=== PATIENT | male | born 1955 | race Caucasian/White ===

== ENCOUNTER 2024-09-18 23:36 | Inpatient (IN) | payer MEDICARE, SELFPAY ==
[2024-09-18 23:40] VITALS: PULSE 103; RESP 18; TEMP 37.2; O2SAT 98; BMI 22.5
[2024-09-19] VITALS (88 sets, daily range): BP systolic 71–125; BP diastolic 45–84; PULSE 67–108; RESP 13–36; TEMP 36.4–36.8; O2SAT 74–100
--- NOTE | 2024-09-19 00:01 | ED_ITS ---
Documented by User: Nel Hernandez MD 09/19/24 04:49 HPI - Weakness 2 General: Chief complaint: Weakness Stated complaint: Weakness Time Seen by Provider: 09/18/24 23:48 History of Present Illness: Is a healthy 68-year-old man who presents emergency room with weakness. Apparently last night middle of that he woke up and had chills and sweats and became very weak. He then slept all day. Then this evening he woke up again having rigors and they report a high fever at home. He has no specific complaints. No new cough. No nausea or vomiting. No abdominal pain. Images fever, generalized weakness and rigors. No altered mental status. No focal motor deficits. Review of Systems 2 Narrative: Constitutional symptoms: Negative except as documented in HPI. Skin symptoms: Negative except as documented in HPI. Eye symptoms: Negative except as documented in HPI. ENMT symptoms: Negative except as documented in HPI. Respiratory symptoms: Negative except as documented in HPI. Cardiovascular symptoms: Negative except as documented in HPI. Gastrointestinal symptoms: Negative except as documented in HPI. Genitourinary symptoms: Negative except as documented in HPI. Musculoskeletal symptoms: Negative except as documented in HPI. Neurologic symptoms: Negative except as documented in HPI. Psychiatric symptoms: Negative except as documented in HPI. Endocrine symptoms: Negative except as documented in HPI. PFSH ED 2 PFSH: Medical History (Updated 09/19/24 @ 05:36 by Hollis Naidu MD) BPH (benign prostatic hyperplasia) Social History (Updated 09/19/24 @ 05:33 by Hollis Naidu MD) Smoking and tobacco/nicotine status: never used tobacco/nicotine Alcohol intake: current Alcohol intake frequency: few times a month Substance/Drug Use: never Physical Exam 2 Narrative: EXAM NARRATIVE: General: Alert, no acute distress. Skin: Warm, dry. Head: Normocephalic, atraumatic. Neck: Supple, trachea midline. Eye: Extraocular movements are intact. Ears, nose, mouth and throat: Dry oral mucosa Cardiovascular: Regular, Normal peripheral perfusion. Respiratory: Lungs are clear to auscultation, respirations are non-labored, breath sounds are equal, Symmetrical chest wall expansion. Gastrointestinal: Soft, Nontender, Non distended Musculoskeletal: Normal ROM, no deformity. Neurological: Alert and oriented, No focal neurological deficit observed. Psychiatric: Cooperative, appropriate mood & affect. Course 2 Vital Signs: Vital signs: Vital Signs Temperature 99 F 09/18/24 23:40 Pulse Rate 82 09/19/24 09:07 Respiratory Rate 19 H 09/19/24 06:00 Blood Pressure 120/82 09/19/24 09:07 Pulse Oximetry 94 09/19/24 09:07 Oxygen Delivery Me thod Room Air 09/19/24 00:39 MDM - Weakness Medical Decision Making Medical decision making: Differential diagnosis for patient presenting with generalized weakness including but not limited to and based on the above HPI, review of systems and physical exam: Sepsis. Dehydration. Renal failure. Electrolyte abnormalities. Anemia. Congestive heart failure. Hypotension. Coronary syndrome. Hepatitis. Cirrhosis. Infections such as pneumonia, urinary tract infection, Tick bourne illness, Cellulitis, Viral infections including influenza and Covid-19. Workup: labwork and lab/exam driven imaging ordered to evaluate, rule in and rule out above pathologies. Chest x-ray: No acute process. No infiltrate. No pneumothorax. This was reviewed and interpreted by myself the emergency room physician. I also reviewed the radiology report. Lab Review: Laboratory results were reviewed and interpreted by myself the emergency room physician. No leukocytosis. No anemia. Platelets are low at 87. BUN and creatinine are elevated at 33 and 1.6. Lactate is elevated at 2.7. LFTs are not elevated. Urinalysis is negative for infection. He does have some abdominal pain on exam. CTs have been ordered. I reviewed the patient's medical record. Consultation: Spoke with Dr. Naidu who is admitting the patient to the ICU. However he is willing to have results of CT scans he ordered done before admitting the patient to the ICU. Assessment and plan: Sepsis Septic shock Hypotension Encephalopathy Non-ST elevation myocardial infarction ?No clear sepsis source at this time. He does have some abdominal pain. Ultrasound does not show any signs of cholangitis or cholecystitis. Unofficial read. -2.5 L normal saline bolus. Fluid volumes based on ideal body weight. -Broad-spectrum antibiotics were administered. Meropenem and Zyvox. ?Initiating Levophed therapy. Blood pressures continue to worsen despite fluids. -Sepsis quality measures. -Lactic acid with a reflex was ordered. -Blood cultures were ordered. -I discussed the patient with the hospitalist on-call who is admitting the patient. - Discussed findings and plan with patient. Answered any questions. - All laboratory values were reviewed and interpreted personally by myself, the ER physician - All imaging was reviewed and interpreted personally by myself, the ER physician. - Evaluation and treatment of this problem were appropriate in the emergency setting Critical care -I spent a total of >35 minutes of critical care time managing the patient, independent of any other practitioner. -The time involved in the performance of separately reportable procedures was not counted towards critical care time. Lab Data 09/19/24 07:08 09/19/24 07:[address] 09/19/24 02:33 IMPRESSION: 1. Scattered ectopic venous gas densities again seen including punctate gas densities within the cavernous sinuses. 2. Otherwise, there are no acute intracranial findings. Abdomen Ultrasound 09/19/24 03:09 IMPRESSION: 1. There are no acute abdominal findings. 2. Mild gallbladder wall thickening without evidence for gallstones or pericholecystic fluid to suggest cholecystitis. Chest/Abdomen/Pelvis CT 09/19/24 03:10 IMPRESSION: 1. Background centrilobular emphysema. Hazy opacities portions lungs likely represents atelectasis. 2. Elongated fluid-filled paratracheal cystic mass seen on the right may represent a benign bronchogenic cyst. 3. Ectopic gas densities superimposes over the left brachiocephalic vein, right internal jugular vein, right internal thoracic vein in left pectoralis veins. The etiology is indeterminate. IMPRESSION: 1. Simple cyst in the upper pole left kidney measuring 2.6 cm. No further workup needed. 2. Simple cyst in the left hepatic lobe measuring up 1.7 cm. No further workup needed. 3. Diverticulosis of the sigmoid colon COMMENTS: Consistent with the [employer]'s Incidental Findings Committee white paper (J Am Abisai Radiol 2018): Any incidental renal lesion less than 1 cm or classified as too small to characterize, or any incidental cystic renal lesion characterized as simple-appearing, is likely benign. No follow-up imaging is recommended for these lesions per consensus recommendations based on imaging criteria. ADDENDUM: 09/19/24 0552 CRITICAL RESULT: THIS REPORT CONTAINS FINDINGS THAT MAY BE CRITICAL TO PATIENT CARE. The findings were verbally communicated via telephone conference with Dr. Mary at 5:48 AM MARRIAGE COUNSELOR MINISTER on 09/19/2024. The findings were acknowledged and understood. Lumbar Puncture Fluoroscopy 09/19/24 05:51 IMPRESSION: Uncomplicated lumbar puncture for CSF. Neck CT 09/19/24 06:35 IMPRESSION: 1. 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 2. Scattered ectopic venous gas densities as previously reported and now seen within small veins in the soft tissues of the neck and within the right cavernous sinus. Chest X-Ray 09/19/24 10:32 IMPRESSION: RIGHT PICC line in good position Laboratory Results WBC 18.90 10^3/uL (3.29-11.43) H 09/19/24 07:08 RBC 4.44 10^6/uL (3.85-5.65) 09/19/24 07:08 Hgb 13.60 g/dL (11.27-16.99) 09/19/24 07:08 Hct 42.3 % (37-53) 09/19/24 07:08 MCV 95.3 fl (82-101) D 09/19/24 07:08 MCH 30.6 pg (27-33) 09/19/24 07:08 MCHC 32.2 g/dL (30-55) 09/19/24 07:08 RDW 12.8 % (12.1-15.1) 09/19/24 07:08 Plt Count 85 10^3/cmm (157-399) L 09/19/24 07:08 MPV 11.5 fL (7.4-10.4) H 09/19/24 07:08 Neut % (Auto) 91.2 % 09/19/24 07:08 Lymph % (Auto) 2.1 % 09/19/24 07:08 [place] % (Auto) 3.8 % 09/19/24 07:08 Eos % (Auto) 0.1 % 09/19/24 07:08 Baso % (Auto) 0.5 % 09/19/24 07:08 Neut # (Auto) 17.24 10^3/uL (1.8-7.7) H 09/19/24 07:08 Lymph # (Auto) 0.4 10^3/uL (0.8-4.8) L 09/19/24 07:08 [place] # (Auto) 0.7 10^3/uL (0.2-0.9) 09/19/24 07:08 Eos # (Auto) 0.0 10^3/uL (0.0-0.8) 09/19/24 07:08 Baso # (Auto) 0.1 10^3/uL (0.0-0.1) 09/19/24 07:08 Nucleated RBC % (auto) 0 % 09/19/24 07:08 Total Counted 100 (0-100) 09/19/24 01:20 Atypical Lymphs % 8.0 % (0-5) H 09/19/24 01:20 Absolute Neutrophils 6.3 10^3/cmm (1.4-6.5) 09/19/24 01:20 Segmented Neutrophils 62 % 09/19/24 01:20 Band Neutrophils 21.0 % 09/19/24 01:20 Absolute Lymphocytes 0.8 10^3/cmm (1.2-3.4) L 09/19/24 01:20 Lymphocytes (Manual) 2 % 09/19/24 01:20 Monocytes (Manual) 5.0 % 09/19/24 01:20 Absolute Monocytes 0.4 10^3/cmm (0.1-0.6) 09/19/24 01:20 Eosinophils (Manual) 0 % 09/19/24 01:20 Absolute Eosinophils 0.0 10^3/cmm (0.0-0.7) 09/19/24 01:20 Basophils (Manual) 0.0 % 09/19/24 01:20 Absolute Basophils 0.0 10^3/cmm (0.0-0.2) 09/19/24 01:20 Myelocytes 2.0 % 09/19/24 01:20 Nucleated RBCs # 0.0 /100WBC 09/19/24 07:08 Toxic Vacuolation 2+ H 09/19/24 01:20 Platelet Estimate Decreased (Normal) 09/19/24 01:20 PT 18.10 SECONDS (12.1-14.9) H 09/19/24 01:20 INR 1.45 (0.8-1.2) H 09/19/24 01:20 Sodium 134 mmol/L (136-145) L 09/19/24 07:08 Potassium 3.0 mmol/L (3.5-5.1) L 09/19/24 07:08 Chloride 104 mmol/L (98-107) 09/19/24 07:08 Carbon Dioxide 19 mmol/L (22-29) L 09/19/24 07:08 Anion Gap 14.0 (5-19) 09/19/24 07:08 BUN 35 mg/dL (8-23) H 09/19/24 07:08 Creatinine 1.6 mg/dL (0.7-1.2) H 09/19/24 07:08 GFR Calculation 43.5 mL/min (90-130) L 09/19/24 07:08 Glucose 124 mg/dL (65-115) H 09/19/24 07:08 Estimat Average Glucose 114 09/19/24 01:20 Hemoglobin A1c 5.6 % (4.0-6.0) 09/19/24 01:20 Calculated Osmolality 287 mOsm/kg (285-295) 09/19/24 07:08 Lactic Acid 2.5 mmol/L (0.5-2.2) H 09/19/24 01:20 Lactic Acid (Sepsis) 2.8 mmol/L (0.5-2.2) H 09/19/24 04:01 Calcium 8.1 mg/dL (8.5-10.5) L 09/19/24 07:08 Iron 9 ug/dL (59-158) L 09/19/24 07:08 TIBC 145 mcg/dl 09/19/24 07:08 % Saturation 6.2 % (20-50) L 09/19/24 07:08 Unsat Iron Binding 136 ug/dL (112-347) 09/19/24 07:08 Total Bilirubin 1.3 mg/dL (0.15-1.2) H 09/19/24 07:08 GGT 59 U/L (8-61) 09/19/24 07:08 AST 154 U/L (0-40) H 09/19/24 07:08 ALT 120 U/L (0-41) H 09/19/24 07:08 Alkaline Phosphatase 77 U/L (40-130) 09/19/24 07:08 Ammonia 27 umol/L (16-60) 09/19/24 04:01 Lactate Dehydrogenase 301 U/L (135-225) H 09/19/24 07:08 Creatine Kinase 473 U/L (39-308) H* 09/19/24 07:08 Troponin T Baseline 179 ng/L (0-15) H* 09/19/24 01:20 Troponin T 120 Minute 189.8 ng/L (0-15) H 09/19/24 02:34 Delta Troponin T 10.8 ABS# (0-10) H* 09/19/24 02:34 Troponin T Hi Sens 6Hr 146.7 ng/L (0-15) H 09/19/24 07:08 Troponin T Hi Sens 6Hr Delta -32.3 ng/L (0-12) L 09/19/24 07:08 C-Reactive Protein 126.1 mg/L (0.0-4.9) H 09/19/24 01:20 C-Reactive Protein 127.5 mg/L (0.0-4.9) H 09/19/24 01:20 Total Protein 5.5 g/dL (6.6-8.7) L 09/19/24 07:08 Albumin 3.1 g/dL (3.5-5.2) L 09/19/24 07:08 Globulin 2.4 g/dL (1.3-4.6) 09/19/24 07:08 Triglycerides 49 mg/dL (0-150) 09/19/24 07:08 Cholesterol 90 mg/dL (0-200) 09/19/24 07:08 LDL Cholesterol, Calc 18 mg/dL (50-129) L 09/19/24 07:08 HDL Cholesterol 62 mg/dL (60-100) 09/19/24 07:08 LDL/HDL Ratio 0.29 RATIO (0.00-3.22) 09/19/24 07:08 Cholesterol/HDL Ratio 1.45 mg/dL (1.0-5.00) 09/19/24 07:08 Lipase 28 U/L (13-60) 09/19/24 01:20 Vitamin B12 745 pg/mL (232-1245) 09/19/24 07:08 Procalcitonin 98.44 ng/mL (0-0.5) H 09/19/24 01:20 TSH 1.64 uIU/mL (0.27-4.20) 09/19/24 01:20 Urine Color Dark yellow (Yellow) A 09/19/24 03:15 Urine Appearance Cloudy (CLEAR) A 09/19/24 03:15 Urine pH 5.5 (5-7) 09/19/24 03:15 Ur Specific [place] 1.023 (1.005-1.030) 09/19/24 03:15 Urine Protein 1+ (Negative) A 09/19/24 03:15 Urine Glucose (UA) Negative (Normal) 09/19/24 03:15 Urine Ketones Trace (Negative) 09/19/24 03:15 Urine Blood Negative (Negative) 09/19/24 03:15 Urine Nitrate Negative (Negative) 09/19/24 03:15 Urine Bilirubin 1+ (Negative) H 09/19/24 03:15 Urine Urobilinogen 1.0 mg/dL (Negative) 09/19/24 03:15 Ur Leukocyte Esterase Negative (Negative) 09/19/24 03:15 Urine RBC 0-2 /hpf (0-2) 09/19/24 03:15 Urine WBC 0-5 /hpf (0-5) 09/19/24 03:15 Ur Squamous Epith Cells 0-5 /hpf (0-5) 09/19/24 03:15 Amorphous Sediment 1+ /hpf 09/19/24 03:15 Urine Bacteria Trace /hpf (NONE) 09/19/24 03:15 Hyaline Casts 4.11 /lpf 09/19/24 03:15 Urine Mucus 2+ /hpf 09/19/24 03:15 Urine Opiates Screen Positive ng/mL (Negative) H 09/19/24 03:15 Ur Barbiturates Screen Negative ng/mL (Negative) 09/19/24 03:15 Ur Phencyclidine Scrn Negative ng/mL (Negative) 09/19/24 03:15 Ur Amphetamines Screen Negative ng/mL (Negative) 09/19/24 03:15 U Benzodiazepines Scrn Negative ng/mL (Negative) 09/19/24 03:15 Urine Cocaine Screen Negative ng/mL (Negative) 09/19/24 03:15 U Marijuana (THC) Screen Negative ng/mL (Negative) 09/19/24 03:15 Ethyl Alcohol < 10 mg/dL (0-10) 09/19/24 07:08 Coronavirus (PCR) Negative (Negative) 09/19/24 04:01 Hepatitis A IgM Ab Non-reactive (Nonreactive) 09/19/24 01:20 Hep Bs Antigen Non-reactive (Nonreactive) 09/19/24 01:20 Hep B Core IgM Ab Non-reactive (Nonreactive) 09/19/24 01:20 Hepatitis C Antibody Non-reactive (Nonreactive) 09/19/24 01:20 HIV 1&2 Ab & HIV 1 Ag Non-reactive (Non-Reactiv) 09/19/24 01:20 HIV 1&2 Antibody Non-reactive (Non-Reactiv) 09/19/24 01:20 Influenza A (PCR) Negative (Negative) 09/19/24 04:01 Influenza Type B (PCR) Negative (Negative) 09/19/24 04:01 RSV (PCR) Negative (Negative) 09/19/24 04:01 Discharge Plan Discharge Patient Disposition: Admitted As Inpatient Admit Provider: Hollis Naidu Clinical Impression: Sepsis, Septic shock, Hypotension, Renal failure, Acute metabolic encephalopathy Condition: Stable Sign Out Sign Out Data: Patient Sign Out occurred on 09/19/24 at 05:53. Patient's care was discussed, and care was transferred from Nel Hernandez MD to Leobardo Mary DO. 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 Related Data Home Medications Medication Instructions Recorded Confirmed No Known Home Medications 09/19/24 09/19/24 Allergies Allergy/AdvReac Type Severity Reaction Status Date / Time Sulfa (Sulfonamide Allergy Mild ALGY-Rash Verified 09/19/24 03:06 Antibiotics) Documented by User: Leobardo Mary DO 09/19/24 12:31 HPI - Weakness 2 General: Chief complaint: Weakness Stated complaint: Weakness Time Seen by Provider: 09/18/24 23:48 PFSH ED 2 PFSH: Medical History (Updated 09/19/24 @ 05:36 by Hollis Naidu MD) BPH (benign prostatic hyperplasia) Social History (Updated 09/19/24 @ 05:33 by Hollis Naidu MD) Smoking and tobacco/nicotine status: never used tobacco/nicotine Alcohol intake: current Alcohol intake frequency: few times a month Substance/Drug Use: never Course 2 Vital Signs: Vital signs: Vital Signs Temperature 99 F 09/18/24 23:40 Pulse Rate 82 09/19/24 09:07 Respiratory Rate 19 H 09/19/24 06:00 Blood Pressure 120/82 09/19/24 09:07 Pulse Oximetry 94 09/19/24 09:07 Oxygen Delivery Me thod Room Air 09/19/24 00:39 MDM - Weakness Medical Decision Making Medical decision making: Differential diagnosis for patient presenting with generalized weakness including but not limited to and based on the above HPI, review of systems and physical exam: Sepsis. Dehydration. Renal failure. Electrolyte abnormalities. Anemia. Congestive heart failure. Hypotension. Coronary syndrome. Hepatitis. Cirrhosis. Infections such as pneumonia, urinary tract infection, Tick bourne illness, Cellulitis, Viral infections including influenza and Covid-19. Workup: labwork and lab/exam driven imaging ordered to evaluate, rule in and rule out above pathologies. Chest x-ray: No acute process. No infiltrate. No pneumothorax. This was reviewed and interpreted by myself the emergency room physician. I also reviewed the radiology report. Lab Review: Laboratory results were reviewed and interpreted by myself the emergency room physician. No leukocytosis. No anemia. Platelets are low at 87. BUN and creatinine are elevated at 33 and 1.6. Lactate is elevated at 2.7. LFTs are not elevated. Urinalysis is negative for infection. He does have some abdominal pain on exam. CTs have been ordered. I reviewed the patient's medical record. Consultation: Spoke with Dr. Naidu who is admitting the patient to the ICU. However he is willing to have results of CT scans he ordered done before admitting the patient to the ICU. Assessment and plan: Sepsis Septic shock Hypotension Encephalopathy Non-ST elevation myocardial infarction ?No clear sepsis source at this time. He does have some abdominal pain. Ultrasound does not show any signs of cholangitis or cholecystitis. Unofficial read. -2.5 L normal saline bolus. Fluid volumes based on ideal body weight. -Broad-spectrum antibiotics were administered. Meropenem and Zyvox. ?Initiating Levophed therapy. Blood pressures continue to worsen despite fluids. -Sepsis quality measures. -Lactic acid with a reflex was ordered. -Blood cultures were ordered. -I discussed the patient with the hospitalist on-call who is admitting the patient. - Discussed findings and plan with patient. Answered any questions. - All laboratory values were reviewed and interpreted personally by myself, the ER physician - All imaging was reviewed and interpreted personally by myself, the ER physician. - Evaluation and treatment of this problem were appropriate in the emergency setting Critical care -I spent a total of >35 minutes of critical care time managing the patient, independent of any other practitioner. -The time involved in the performance of separately reportable procedures was not counted towards critical care time. Care assumed at change of shift Dr. Hernandez had already talked to hospitalist service here waiting on the CT of the abdomen pelvis no acute pathology however interestingly there reported some air within a few of the vessels. Patient has not had any central lines placed. Reviewed the IVs with nursing staff they are functioning appropriately no abnormalities. Discussed with Dr. Terrell will admit as planned. Discussion previously with Dr. Hernandez. No other interventions done at this time. Lab Data 09/19/24 07:08 09/19/24 07:[address] 09/19/24 02:33 IMPRESSION: 1. Scattered ectopic venous gas densities again seen including punctate gas densities within the cavernous sinuses. 2. Otherwise, there are no acute intracranial findings. Abdomen Ultrasound 09/19/24 03:09 IMPRESSION: 1. There are no acute abdominal findings. 2. Mild gallbladder wall thickening without evidence for gallstones or pericholecystic fluid to suggest cholecystitis. Chest/Abdomen/Pelvis CT 09/19/24 03:10 IMPRESSION: 1. Background centrilobular emphysema. Hazy opacities portions lungs likely represents atelectasis. 2. Elongated fluid-filled paratracheal cystic mass seen on the right may represent a benign bronchogenic cyst. 3. Ectopic gas densities superimposes over the left brachiocephalic vein, right internal jugular vein, right internal thoracic vein in left pectoralis veins. The etiology is indeterminate. IMPRESSION: 1. Simple cyst in the upper pole left kidney measuring 2.6 cm. No further workup needed. 2. Simple cyst in the left hepatic lobe measuring up 1.7 cm. No further workup needed. 3. Diverticulosis of the sigmoid colon COMMENTS: Consistent with the [place] [employer]'s Incidental Findings Committee white paper (J [employer]ai Radiol 2018): Any incidental renal lesion less than 1 cm or classified as too small to characterize, or any incidental cystic renal lesion characterized as simple-appearing, is likely benign. No follow-up imaging is recommended for these lesions per consensus recommendations based on imaging criteria. ADDENDUM: 09/19/24 0552 CRITICAL RESULT: THIS REPORT CONTAINS FINDINGS THAT MAY BE CRITICAL TO PATIENT CARE. The findings were verbally communicated via telephone conference with Dr. Mary at 5:48 AM MARRIAGE COUNSELOR MINISTER on 09/19/2024. The findings were acknowledged and understood. Lumbar Puncture Fluoroscopy 09/19/24 05:51 IMPRESSION: Uncomplicated lumbar puncture for CSF. Neck CT 09/19/24 06:35 IMPRESSION: 1. 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 2. Scattered ectopic venous gas densities as previously reported and now seen within small veins in the soft tissues of the neck and within the right cavernous sinus. Chest X-Ray 09/19/24 10:32 IMPRESSION: RIGHT PICC line in good position Laboratory Results WBC 18.90 10^3/uL (3.29-11.43) H 09/19/24 07:08 RBC 4.44 10^6/uL (3.85-5.65) 09/19/24 07:08 Hgb 13.60 g/dL (11.27-16.99) 09/19/24 07:08 Hct 42.3 % (37-53) 09/19/24 07:08 MCV 95.3 fl (82-101) D 09/19/24 07:08 MCH 30.6 pg (27-33) 09/19/24 07:08 MCHC 32.2 g/dL (30-55) 09/19/24 07:08 RDW 12.8 % (12.1-15.1) 09/19/24 07:08 Plt Count 85 10^3/cmm (157-399) L 09/19/24 07:08 MPV 11.5 fL (7.4-10.4) H 09/19/24 07:08 Neut % (Auto) 91.2 % 09/19/24 07:08 Lymph % (Auto) 2.1 % 09/19/24 07:08 [place] % (Auto) 3.8 % 09/19/24 07:08 Eos % (Auto) 0.1 % 09/19/24 07:08 Baso % (Auto) 0.5 % 09/19/24 07:08 Neut # (Auto) 17.24 10^3/uL (1.8-7.7) H 09/19/24 07:08 Lymph # (Auto) 0.4 10^3/uL (0.8-4.8) L 09/19/24 07:08 [place] # (Auto) 0.7 10^3/uL (0.2-0.9) 09/19/24 07:08 Eos # (Auto) 0.0 10^3/uL (0.0-0.8) 09/19/24 07:08 Baso # (Auto) 0.1 10^3/uL (0.0-0.1) 09/19/24 07:08 Nucleated RBC % (auto) 0 % 09/19/24 07:08 Total Counted 100 (0-100) 09/19/24 01:20 Atypical Lymphs % 8.0 % (0-5) H 09/19/24 01:20 Absolute Neutrophils 6.3 10^3/cmm (1.4-6.5) 09/19/24 01:20 Segmented Neutrophils 62 % 09/19/24 01:20 Band Neutrophils 21.0 % 09/19/24 01:20 Absolute Lymphocytes 0.8 10^3/cmm (1.2-3.4) L 09/19/24 01:20 Lymphocytes (Manual) 2 % 09/19/24 01:20 Monocytes (Manual) 5.0 % 09/19/24 01:20 Absolute Monocytes 0.4 10^3/cmm (0.1-0.6) 09/19/24 01:20 Eosinophils (Manual) 0 % 09/19/24 01:20 Absolute Eosinophils 0.0 10^3/cmm (0.0-0.7) 09/19/24 01:20 Basophils (Manual) 0.0 % 09/19/24 01:20 Absolute Basophils 0.0 10^3/cmm (0.0-0.2) 09/19/24 01:20 Myelocytes 2.0 % 09/19/24 01:20 Nucleated RBCs # 0.0 /100WBC 09/19/24 07:08 Toxic Vacuolation 2+ H 09/19/24 01:20 Platelet Estimate Decreased (Normal) 09/19/24 01:20 PT 18.10 SECONDS (12.1-14.9) H 09/19/24 01:20 INR 1.45 (0.8-1.2) H 09/19/24 01:20 Sodium 134 mmol/L (136-145) L 09/19/24 07:08 Potassium 3.0 mmol/L (3.5-5.1) L 09/19/24 07:08 Chloride 104 mmol/L (98-107) 09/19/24 07:08 Carbon Dioxide 19 mmol/L (22-29) L 09/19/24 07:08 Anion Gap 14.0 (5-19) 09/19/24 07:08 BUN 35 mg/dL (8-23) H 09/19/24 07:08 Creatinine 1.6 mg/dL (0.7-1.2) H 09/19/24 07:08 GFR Calculation 43.5 mL/min (90-130) L 09/19/24 07:08 Glucose 124 mg/dL (65-115) H 09/19/24 07:08 Estimat Average Glucose 114 09/19/24 01:20 Hemoglobin A1c 5.6 % (4.0-6.0) 09/19/24 01:20 Calculated Osmolality 287 mOsm/kg (285-295) 09/19/24 07:08 Lactic Acid 2.5 mmol/L (0.5-2.2) H 09/19/24 01:20 Lactic Acid (Sepsis) 2.8 mmol/L (0.5-2.2) H 09/19/24 04:01 Calcium 8.1 mg/dL (8.5-10.5) L 09/19/24 07:08 Iron 9 ug/dL (59-158) L 09/19/24 07:08 TIBC 145 mcg/dl 09/19/24 07:08 % Saturation 6.2 % (20-50) L 09/19/24 07:08 Unsat Iron Binding 136 ug/dL (112-347) 09/19/24 07:08 Total Bilirubin 1.3 mg/dL (0.15-1.2) H 09/19/24 07:08 GGT 59 U/L (8-61) 09/19/24 07:08 AST 154 U/L (0-40) H 09/19/24 07:08 ALT 120 U/L (0-41) H 09/19/24 07:08 Alkaline Phosphatase 77 U/L (40-130) 09/19/24 07:08 Ammonia 27 umol/L (16-60) 09/19/24 04:01 Lactate Dehydrogenase 301 U/L (135-225) H 09/19/24 07:08 Creatine Kinase 473 U/L (39-308) H* 09/19/24 07:08 Troponin T Baseline 179 ng/L (0-15) H* 09/19/24 01:20 Troponin T 120 Minute 189.8 ng/L (0-15) H 09/19/24 02:34 Delta Troponin T 10.8 ABS# (0-10) H* 09/19/24 02:34 Troponin T Hi Sens 6Hr 146.7 ng/L (0-15) H 09/19/24 07:08 Troponin T Hi Sens 6Hr Delta -32.3 ng/L (0-12) L 09/19/24 07:08 C-Reactive Protein 126.1 mg/L (0.0-4.9) H 09/19/24 01:20 C-Reactive Protein 127.5 mg/L (0.0-4.9) H 09/19/24 01:20 Total Protein 5.5 g/dL (6.6-8.7) L 09/19/24 07:08 Albumin 3.1 g/dL (3.5-5.2) L 09/19/24 07:08 Globulin 2.4 g/dL (1.3-4.6) 09/19/24 07:08 Triglycerides 49 mg/dL (0-150) 09/19/24 07:08 Cholesterol 90 mg/dL (0-200) 09/19/24 07:08 LDL Cholesterol, Calc 18 mg/dL (50-129) L 09/19/24 07:08 HDL Cholesterol 62 mg/dL (60-100) 09/19/24 07:08 LDL/HDL Ratio 0.29 RATIO (0.00-3.22) 09/19/24 07:08 Cholesterol/HDL Ratio 1.45 mg/dL (1.0-5.00) 09/19/24 07:08 Lipase 28 U/L (13-60) 09/19/24 01:20 Vitamin B12 745 pg/mL (232-1245) 09/19/24 07:08 Procalcitonin 98.44 ng/mL (0-0.5) H 09/19/24 01:20 TSH 1.64 uIU/mL (0.27-4.20) 09/19/24 01:20 Urine Color Dark yellow (Yellow) A 09/19/24 03:15 Urine Appearance Cloudy (CLEAR) A 09/19/24 03:15 Urine pH 5.5 (5-7) 09/19/24 03:15 Ur Specific [place] 1.023 (1.005-1.030) 09/19/24 03:15 Urine Protein 1+ (Negative) A 09/19/24 03:15 Urine Glucose (UA) Negative (Normal) 09/19/24 03:15 Urine Ketones Trace (Negative) 09/19/24 03:15 Urine Blood Negative (Negative) 09/19/24 03:15 Urine Nitrate Negative (Negative) 09/19/24 03:15 Urine Bilirubin 1+ (Negative) H 09/19/24 03:15 Urine Urobilinogen 1.0 mg/dL (Negative) 09/19/24 03:15 Ur Leukocyte Esterase Negative (Negative) 09/19/24 03:15 Urine RBC 0-2 /hpf (0-2) 09/19/24 03:15 Urine WBC 0-5 /hpf (0-5) 09/19/24 03:15 Ur Squamous Epith Cells 0-5 /hpf (0-5) 09/19/24 03:15 Amorphous Sediment 1+ /hpf 09/19/24 03:15 Urine Bacteria Trace /hpf (NONE) 09/19/24 03:15 Hyaline Casts 4.11 /lpf 09/19/24 03:15 Urine Mucus 2+ /hpf 09/19/24 03:15 Urine Opiates Screen Positive ng/mL (Negative) H 09/19/24 03:15 Ur Barbiturates Screen Negative ng/mL (Negative) 09/19/24 03:15 Ur Phencyclidine Scrn Negative ng/mL (Negative) 09/19/24 03:15 Ur Amphetamines Screen Negative ng/mL (Negative) 09/19/24 03:15 U Benzodiazepines Scrn Negative ng/mL (Negative) 09/19/24 03:15 Urine Cocaine Screen Negative ng/mL (Negative) 09/19/24 03:15 U Marijuana (THC) Screen Negative ng/mL (Negative) 09/19/24 03:15 Ethyl Alcohol < 10 mg/dL (0-10) 09/19/24 07:08 Coronavirus (PCR) Negative (Negative) 09/19/24 04:01 Hepatitis A IgM Ab Non-reactive (Nonreactive) 09/19/24 01:20 Hep Bs Antigen Non-reactive (Nonreactive) 09/19/24 01:20 Hep B Core IgM Ab Non-reactive (Nonreactive) 09/19/24 01:20 Hepatitis C Antibody Non-reactive (Nonreactive) 09/19/24 01:20 HIV 1&2 Ab & HIV 1 Ag Non-reactive (Non-Reactiv) 09/19/24 01:20 HIV 1&2 Antibody Non-reactive (Non-Reactiv) 09/19/24 01:20 Influenza A (PCR) Negative (Negative) 09/19/24 04:01 Influenza Type B (PCR) Negative (Negative) 09/19/24 04:01 RSV (PCR) Negative (Negative) 09/19/24 04:01 All radiology interpretation(s) finalized by discharge Discharge Plan Discharge Patient Disposition: Admitted As Inpatient Admit Provider: Hollis Naidu Clinical Impression: Sepsis, Septic shock, Hypotension, Renal failure, Acute metabolic encephalopathy Condition: Stable Sign Out Sign Out Data: Patient Sign Out occurred on 09/19/24 at 05:53. Patient's care was discussed, and care was transferred from Nel Hernandez MD to Leobardo Mary DO. 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
--- NOTE | 2024-09-19 00:13 | XRR_ITS ---
PROCEDURE INFORMATION: Exam: XR Chest Exam date and time: 09/19/2024 12:29 AM Age: 68 years old Clinical indication: Other: Weakness TECHNIQUE: Imaging protocol: Radiologic exam of the chest. Views: 1 view. COMPARISON: No relevant prior studies available. FINDINGS: Lungs: Unremarkable. No consolidation. Pleural spaces: Unremarkable. No pleural effusion. No pneumothorax. Heart/Mediastinum: Unremarkable. No cardiomegaly. Bones/joints: There is evidence of a healed fracture of the right clavicle. XR/XR chest 1V portable [id number] IMPRESSION: There are no acute chest findings.
[2024-09-19] MEDS: sodium chloride 0.9% 1,000 ML 999 ML IV ×2 (01:14→01:30)
[2024-09-19 01:29] LABS: Covid PCR NEGATIVE (Negative); Influenza A NEGATIVE (Negative); Influenza B NEGATIVE (Negative); Respiratory Syncytial Virus Ce NEGATIVE (Negative)
[2024-09-19 01:32] LABS: Hematocrit 42.6 % (37-53); Mean Corpuscular HGB Conc 33.6 g/dL (30-55); Mean Corpuscular Hemoglobin 30.4 pg (27-33); Mean Corpuscular Volume 90.6 fl (82-101); Platelet Count 87 10^3/cmm (157-399); Red Cell Distribution Width 12.5 % (12.1-15.1); White Blood Count 7.65 10^3/uL (3.29-11.43)
[2024-09-19 01:55] LABS: Alanine Aminotransferase 80 U/L (0-41); Albumin Level 3.7 g/dL (3.5-5.2); Alkaline Phosphatase 135 U/L (40-130); Anion Gap 16.2 (5-19); Aspartate Amino Transferase 115 U/L (0-40); Blood Urea Nitrogen 33 mg/dL (8-23); C Reactive Protein 127.5 mg/L (0.0-4.9); Calcium 8.6 mg/dL (8.5-10.5); Carbon Dioxide 24 mmol/L (22-29); Chloride 102 mmol/L (98-107); Creatinine Clr Calc Pharmacy 46.4335; Globulin 1.7 g/dL (1.3-4.6); Glomerular Filtration Rate 43.5 mL/min (90-130); Glucose 115 mg/dL (65-115); Osmolality Calculated 296 mOsm/kg (285-295); Potassium 3.2 mmol/L (3.5-5.1); Sodium 139 mmol/L (136-145); Total Bilirubin 0.7 mg/dL (0.15-1.2); Total Protein 5.4 g/dL (6.6-8.7)
[2024-09-19 01:56] LABS: Lactic Sepsis W/Reflex 2.5 mmol/L (0.5-2.2)
[2024-09-19 01:57] LABS: Troponin(5th) Baseline 179 ng/L (0-15)
[2024-09-19 02:10] LABS: Slide Review Slide Review Perform
[2024-09-19 02:11] LABS: Absolute Neutrophil 6.3 10^3/cmm (1.4-6.5); Absolute Segmented Neutrophil 4.7 10/cmm (1.6-7.1); Band Neutrophils Absolute 1.6 10^3/cmm (0.0-1.2); Eosinophils 0 %; Lymphocytes 2 %; Lymphocytes Absolute 0.8 10^3/cmm (1.2-3.4); Monocytes Absolute 0.4 10^3/cmm (0.1-0.6); Platelet Estimate Decreased (Normal); Segmented Neutrophils 62 %; Total Cells Counted 100 (0-100)
[2024-09-19 02:12] LABS: Toxic Vacuolation 2+
[2024-09-19] MEDS: sodium chloride 0.9% 500 ML 999 ML IV (02:30)
--- NOTE | 2024-09-19 02:33 | CTR_ITS ---
PROCEDURE INFORMATION: Exam: CT Head Without Contrast Exam date and time: 09/19/2024 4:45 AM Age: 68 years old Clinical indication: Injury or trauma; Fall; Blunt trauma (contusions or hematomas); Consciousness not specified; Altered mental status/memory loss and dizziness; Additional info: Fall, head injury TECHNIQUE: Imaging protocol: Computed tomography of the head without contrast. Radiation optimization: All CT scans at this facility use at least one of these dose optimization techniques: automated exposure control; mA and/or kV adjustment per patient size (includes targeted exams where dose is matched to clinical indication); or iterative reconstruction. COMPARISON: No relevant prior studies available. RADIATION DOSE METRICS: Total DLP (mGy-cm): 1187.23 FINDINGS: Brain: Normal. No hemorrhage. Unremarkable white matter. No mass effect. Cerebral ventricles: No ventriculomegaly. Paranasal sinuses: Mucosal thickening and fluid is seen within the ethmoidal and maxillary sinuses. Mastoid air cells: Visualized mastoid air cells are well aerated. Bones: Unremarkable. No acute fracture. Soft tissues: Unremarkable. Vasculature: Scattered ectopic venous gas densities are again seen. CT/CT head wo con* [id number] IMPRESSION: 1. Scattered ectopic venous gas densities again seen including punctate gas densities within the cavernous sinuses. 2. Otherwise, there are no acute intracranial findings.
[2024-09-19 03:00] LABS: Troponin 5 2HR 189.8 ng/L (0-15); Troponin 5 2HR Delta 10.8 ABS# (0-10)
[2024-09-19] MEDS: norepinephrine 4 MG/250 ML BAG 30 MG IV ×2 (03:04→09:46)
[2024-09-19] MEDS: meropenem 500 mg SDV IVP (03:08)
[2024-09-19] MEDS: linezolid premix 600 MG/300 ML PREMIX 300 MG IV (03:09)
--- NOTE | 2024-09-19 03:09 | USR_ITS ---
PROCEDURE INFORMATION: Exam: US Abdomen, Limited; Right Upper Quadrant Exam date and time: 09/19/2024 3:31 AM Age: 68 years old Clinical indication: Vomiting and other: Normal tbili = 0.7, elevated ast = 115, elevated alt = 80, elevated alkphos = 135; Additional info: Ruq, liver, gallbladder, ducts TECHNIQUE: Imaging protocol: Real time ultrasound of the abdomen with image documentation. Limited exam focused on the right upper quadrant. COMPARISON: No relevant prior studies available. FINDINGS: Liver: Normal. No masses. Gallbladder: There is mild gallbladder thickening measuring 3 mm. However, there is no evidence for gallstones pericholecystic fluid. Biliary ducts: Normal. No stones. No dilation. Pancreas: Visualized pancreas is unremarkable. Right kidney: Normal. No mass. No hydronephrosis. US/US abdomen limited [id number] IMPRESSION: 1. There are no acute abdominal findings. 2. Mild gallbladder wall thickening without evidence for gallstones or pericholecystic fluid to suggest cholecystitis.
--- NOTE | 2024-09-19 03:10 | CTR_ITS ---
PROCEDURE INFORMATION: Exam: CT Chest Without Contrast; Diagnostic Exam date and time: 09/19/2024 4:51 AM Age: 68 years old Clinical indication: Abdominal tenderness and fever; Dyspnea and shortness of breath; Additional info: SOB TECHNIQUE: Imaging protocol: Diagnostic computed tomography of the chest without contrast. Radiation optimization: All CT scans at this facility use at least one of these dose optimization techniques: automated exposure control; mA and/or kV adjustment per patient size (includes targeted exams where dose is matched to clinical indication); or iterative reconstruction. COMPARISON: CR (CHEST, ) 09/19/2024 12:29 AM RADIATION DOSE METRICS: Total DLP (mGy-cm): 0 FINDINGS: Lungs: There is a background of mild centrilobular emphysema. Hazy opacities are seen in the dependent portions of the lungs likely representing atelectasis. Pleural spaces: Unremarkable. No pneumothorax. No pleural effusion. Heart: Unremarkable. No cardiomegaly. No pericardial effusion. Coronary arteries: There are no coronary artery calcifications. Mediastinal space: There is elongated paratracheal cystic mass seen on the right measures 2.4 cm AP dimension 2 cm transverse dimension and 6.1 cm craniocaudal dimension. This may represent a large benign bronchogenic cyst. Lymph nodes: Unremarkable. No enlarged lymph nodes. Vasculature: Unremarkable. No aortic aneurysm. Bones/joints: Unremarkable. No acute fracture. Soft tissues: Unremarkable. Other findings: There is a gas density that superimposes over the left brachiocephalic vein. A tiny right internal jugular right internal thoracic vein. Third tiny gas density is seen in the left pectoralis vein. COMMENTS: The presence of pulmonary emphysema on CT is an independent risk factor for lung cancer. In the absence of a history or active diagnosis of lung cancer, it is recommended that this patient with emphysema be evaluated for enrollment in a low dose CT lung cancer screening program. PROCEDURE INFORMATION: Exam: CT Abdomen And Pelvis Without Contrast Exam date and time: 09/19/2024 4:51 AM Age: 68 years old Clinical indication: Abdominal tenderness and fever; Dyspnea and shortness of breath; Additional info: SOB TECHNIQUE: Imaging protocol: Computed tomography of the abdomen and pelvis without contrast. Radiation optimization: All CT scans at this facility use at least one of these dose optimization techniques: automated exposure control; mA and/or kV adjustment per patient size (includes targeted exams where dose is matched to clinical indication); or iterative reconstruction. COMPARISON: US abdomen limited [id number] 09/19/2024 3:31 AM RADIATION DOSE METRICS: Total DLP (mGy-cm): 732.73 FINDINGS: Liver: There is hypoattenuation the cystic lesion seen within the left hepatic lobe superiorly measuring 1.7 cm its greatest. This likely represents a benign cyst. Gallbladder and biliary ducts: Normal. No calcified stones. No ductal dilation. Pancreas: Normal. No ductal dilation. Spleen: Normal. No splenomegaly. Adrenal glands: Normal. No mass. Kidneys and ureters: There is a hypoattenuation cystic mass seen in the upper pole of the left kidney measuring 2.6 cm compatible with a simple cyst. Stomach and bowel: Diverticula present along the sigmoid colon. There are no inflammatory changes seen to suggest diverticulitis. Appendix: No evidence of appendicitis. Intraperitoneal space: Unremarkable. No free air. No significant fluid collection. Vasculature: Unremarkable. No abdominal aortic aneurysm. Lymph nodes: Unremarkable. No enlarged lymph nodes. Urinary bladder: Unremarkable as visualized. Reproductive: Unremarkable as visualized. Bones/joints: Unremarkable. No acute fracture. Soft tissues: Strandy opacities are seen in the perinephric fascia bilaterally representing chronic scarring. CT/[place] [id number] IMPRESSION: 1. Background centrilobular emphysema. Hazy opacities portions lungs likely represents atelectasis. 2. Elongated fluid-filled paratracheal cystic mass seen on the right may represent a benign bronchogenic cyst. 3. Ectopic gas densities superimposes over the left brachiocephalic vein, right internal jugular vein, right internal thoracic vein in left pectoralis veins. The etiology is indeterminate. IMPRESSION: 1. Simple cyst in the upper pole left kidney measuring 2.6 cm. No further workup needed. 2. Simple cyst in the left hepatic lobe measuring up 1.7 cm. No further workup needed. 3. Diverticulosis of the sigmoid colon COMMENTS: Consistent with the [employer]'s Incidental Findings Committee white paper (J Am Abisai Radiol 2018): Any incidental renal lesion less than 1 cm or classified as too small to characterize, or any incidental cystic renal lesion characterized as simple-appearing, is likely benign. No follow-up imaging is recommended for these lesions per consensus recommendations based on imaging criteria.
--- NOTE | 2024-09-19 03:12 | USCV_ITS ---
Christopher Rain Age: 68 Gender: M : 1955 Exam Date: 09/19/2024 03:50 Ordering Phys: Hollis Naidu MD Technologist: JAUN [place] [facility] [place]: no indications on requisition BP: 98 / 61 HR: 95 Rhythm: Sinus Technical Quality: Adequate MEASUREMENTS (Male / Female) Normal Values 2D ECHO LV Diastolic Diameter PLAX 3.8 cm 4.2 - 5.9 / 3.9 - 5.3 cm IVS Diastolic Thickness 1.3 cm 0.6 - 1.0 / 0.6 - 0.9 cm IVS Systolic Thickness 1.8 cm LVPW Diastolic Thickness 1.2 cm 0.6 - 1.0 / 0.6 - 0.9 cm LVPW Systolic Thickness 1.7 cm LVOT Diameter 1.9 cm LV Ejection Fraction 2D Teich 49.6 % LV Ejection Fraction MOD 4C 43.5 % LV Ejection Fraction MOD 2C 51.6 % LV Ejection Fraction 2C AL 51.4 % LA Diameter 2.5 cm Aorta at Sinotubular Diameter 2.8 cm IVC Diameter 2.5 cm M-MODE LA Ao Ratio MM 0.9 AV Cusp Separation MM 2.2 cm DOPPLER AV Peak Velocity 84.0 cm/s LVOT Peak Velocity 81.0 cm/s AV Area Cont Eq vti 2.6 cm squared AV Area Cont Eq pk 2.7 cm squared MV Peak Velocity 86.0 cm/s MV Area PHT 5.2 cm squared Mitral E to A Ratio 0.8 TR Peak Velocity 251.0 cm/s TR Peak Gradient 25.2 mmHg TV Peak E Velocity 40.0 cm/s PV Peak Velocity 51.0 cm/s FINDINGS Left Ventricle Mild diffuse hypokinesia of the left ventricle with an ejection fraction of 44%.mild left ventricular hypertrophy. Grade I/IV diastolic dysfunction (abnormal relaxation filling pattern), normal to mildly elevated filling pressures. Right Ventricle Mild diffuse hypokinesis of right ventricle with a slightly diminished ejection fraction. Right Atrium The right atrium is normal in size. Left Atrium The left atrium is normal in size. Mitral Valve Thickened mitral valve. Trace mitral valve regurgitation. Aortic Valve Thickened aortic valve. Tricuspid Valve Thickened tricuspid valve. Trace to mild tricuspid valve regurgitation. E PSP 35 mmHg Pulmonic Valve No gross abnormalities noted Pericardium Normal pericardium without effusion. Aorta Normal ascending aorta dimension. IVC Normal IVC dimension with <50% respiratory change of the inferior vena cava. CONCLUSIONS Mild diffuse hypokinesia of the left ventricle with an ejection fraction of 44%.mild left ventricular hypertrophy. Grade I/IV diastolic dysfunction (abnormal relaxation filling pattern), normal to mildly elevated filling pressures. Thickened aortic, mitral and tricuspid valves.Thickened tricuspid valve. Trace to mild tricuspid valve regurgitation. E PSP 35 mmHg. Trace mitral valve regurgitation. There is no pericardial effusion. There are no intracardiac masses. No similar previous studies are available for comparison Dr Kristy Luis MD [facility] (Electronically Signed) Final Date: 19 September 2024 08:45 S
[2024-09-19 03:15] LABS: Reflex Lactate Order REFLEX LACTIC ORDERD
[2024-09-19 03:25] LABS: Bilirubin Urine 1+ (Negative); Blood Urine Negative (Negative); Glucose Urine UA Negative (Normal); Ketones Urine Trace (Negative); Leukocyte Esterase Urine Negative (Negative); Nitrate Urine Negative (Negative); Protein Urine 1+ (Negative); Specific Gravity, Urine 1.023 (1.005-1.030); Urine Appearance Cloudy (CLEAR); Urine Color Dark Yellow (Yellow); pH Urine 5.5 (5-7)
[2024-09-19 03:30] LABS: Hyaline Casts Urine 4.11 /lpf; RBC Urine 0-2 /hpf (0-2); Squamous Epithelial Cell Urine 0-5 /hpf (0-5); WBC Urine 0-5 /hpf (0-5)
[2024-09-19 03:34] LABS: UA Slide Review UA Slide Review Perf
[2024-09-19 03:38] LABS: Add Urine Culture? No; Amorphous Sediment Urine 1+ /hpf; Bacteria Urine TRACE /hpf; Mucus Urine 2+ /hpf
--- NOTE | 2024-09-19 04:18 | ECG_ITS ---
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 Measurements Intervals [place] Rate: 90 P: 67 AK: 156 QRS: 41 QRSD: 90 T: 40 QT: 348 QTc: 426 Interpretive Statements SINUS RHYTHM Compared to ECG 09/19/2024 01:00:46 Sinus tachycardia no longer present Electronically Signed On 09-19-2024 19:57:37 REHAB CARE ASSISTANT by Kristy Luis M.D. [email or web address]
[2024-09-19 04:21] LABS: Chol HDL Ratio 1.57 mg/dL (1.0-5.00); Cholesterol 110 mg/dL (0-200); Gamma Glutamyl Transferase 44 U/L (8-61); HDL Cholesterol 70 mg/dL (60-100); LDL Cholesterol Calculated 33 mg/dL (50-129); LDL HDL Ratio 0.47 RATIO (0.00-3.22); Triglycerides 36 mg/dL (0-150)
[2024-09-19 04:27] LABS: HIV 1 & 2 Antibody Non-Reactive (Non-Reactiv); HIV 1 & 2 Antigen Non-Reactive (Non-Reactiv)
[2024-09-19 04:29] LABS: Procalcitonin 98.44 ng/mL (0-0.5); Thyroid Stimulating Hormone 1.64 uIU/mL (0.27-4.20)
[2024-09-19 04:29] LABS: Ammonia 27 umol/L (16-60); Lactic Acid level (Lactate) 2.8 mmol/L (0.5-2.2)
[2024-09-19 04:33] LABS: Hepatitis A Antibody IgM Non-Reactive (Nonreactive); Hepatitis B Core IgM Non-Reactive (Nonreactive); Hepatitis B Surface Antigen Non-Reactive (Nonreactive); Hepatitis C Virus Antibody Non-Reactive (Nonreactive)
[2024-09-19 04:36] LABS: Creatine Phosphokinase 450 U/L (39-308)
[2024-09-19 04:37] LABS: Estmated Average Glucose 114; Hemoglobin A1C 5.6 % (4.0-6.0)
[2024-09-19 04:43] LABS: C Reactive Protein 126.1 mg/L (0.0-4.9); Lipase 28 U/L (13-60)
--- NOTE | 2024-09-19 05:27 | P.HP_ITS ---
Providers/Chief Complaint 2 Chief Complaint: Weakness History of Present Illness Christopher Rain is a 68 year old male with no significant past medical history, who presents to [facility] due to altered mental status, fevers, chills, fatigue, malaise. Currently patient is alert to person, not to place, not to time, he does awaken, but easily falls asleep, currently on Levophed, for septic shock, is at bedside who helps in the history taking. Patient's tells me that they live in [facility], they are building their house, he is very active, he has chronic low back pain has been complaining of low bit more back pain she tells me, no sick contacts, recent travel. She tells me that early in the morning, Christopher woke up, complaining of severe fevers and chills with poor appetite and went back to sleep. Really has not been complaining of any cough, no shortness of breath no chest pain no abdominal pain. No complaints of diarrhea, but did have poor appetite he slept throughout the day, and again woke up in early evening, for complaints of severe chills, fevers. does tell me that in the afternoon when he had his episodes of severe chills and shakes, he had urinary incontinence and bowel incontinence during that episode. She thinks it was more severe chills than a seizure episode, but she is not exactly sure. During my examination, Christopher denies any cough, denies any shortness of breath, denies any dysuria, does tell me that he has a history of enlarged prostate. Discussed with that source of sepsis currently is unclear, he does appear a bit jaundiced, although his bilirubin is within normal limits LFTs are elevated ordering a CT chest abdomen pelvis with a gallbladder ultrasound to rule out acute ascending cholangitis. His UA is within normal limits. Chest x-ray is within normal limits. Although his white count is normal his Pro-Thiago is 98, CRP 126. He denies any chest pain but his troponins are elevated at 179. Does complain of right upper quadrant pain upon palpation, no guarding, rebound, rigidity. On examination pupils equal round reactive to light, he does follow commands at times but falls back asleep. Kernig sign negative, Babinski sign negative, she does tell me that has been complaining of back pain and neck pain recently, given his altered mental status is elevated inflammatory markers fevers chills the possibility of meningitis. He is receiving Zyvox, meropenem I am going to start him on Decadron in the meantime. Discussed with his disposition will depend on what his CT of his abdomen and pelvis show. Will also add a CT of the chest,. Flu panel ordered was negative. Hepatitis panel ordered which was negative. HIV panel ordered which was negative. Review of Systems 2 Const: Reports: fever(s), chills, fatigue and malaise Card: Denies: chest pain Resp: Denies: dyspnea GI: Reports: abdominal pain Neuro: Denies: headache(s) Medications/Allergies Allergies Allergy/AdvReac Type Severity Reaction Status Date / Time Sulfa (Sulfonamide Allergy Mild ALGY-Rash Verified 09/19/24 03:06 Antibiotics) PFSH Acute 2 PFSH: Medical History (Updated 09/19/24 @ 05:36 by Hollis Naidu MD) BPH (benign prostatic hyperplasia) Social History (Updated 09/19/24 @ 05:33 by Hollis Naidu MD) Smoking and tobacco/nicotine status: never used tobacco/nicotine Alcohol intake: current Alcohol intake frequency: few times a month Substance/Drug Use: never Vitals/I&O/Wt Last Vital Signs Temp 99 F 09/18/24 23:40 Pulse 104 H 09/19/24 03:15 Resp 19 H 09/19/24 02:45 BP 114/83 09/19/24 03:15 Pulse Ox 94 09/19/24 03:15 O2 Del Method Room Air 09/19/24 00:39 09/18/24 09/18/24 09/19/24 14:59 22:59 06:59 Intake Total 600 / 600 Balance 600 / 600 Weight last 48 hrs Weight 71.214 kg Physical Exam 2 Const: COMMON NORMALS: no acute distress EXAM LIMITATIONS: altered mental status ORIENTATION/CONSCIOUSNESS: Yes awake, Yes oriented to person and Yes confused; not oriented to place and not oriented to time OTHER: Kernig sign negative, Bruschi sign negative HENMT: COMMON NORMALS: normocephalic HEAD & SCALP: normocephalic Eye: COMMON NORMALS: Equal, round and reactive pupils present Neck/C-Spine: COMMON NORMALS: no JVD Lymph: LYMPHATIC: no lymphadenopathy noted Resp: COMMON NORMALS: normal respiratory effort, No retractions, No use of accessory muscles and clear to auscultation bilaterally AUSCULTATION: clear to auscultation bilaterally Cardio: COMMON NORMALS: regular rate, regular rhythm, S1 normal heart sound present and S2 normal heart sound present RATE: regular rate RHYTHM: r egular rhythm HEART SOUNDS: S1 normal heart sound present and S2 normal heart sound present GI: OTHER: Abdomen soft, nondistended, good bowel sounds, no guarding, no rebound, no rigidity, does have right upper quadrant tenderness to palpation Extremity: COMMON NORMALS: no calf tenderness and no pedal edema Neuro: OTHER: Does move bilateral upper and lower extremities, difficult to follow neurologic testing Sepsis: Is patient septic: Yes Focused sepsis exam performed: Yes F ocused sepsis exam: DP PT pulses palpable, mild mottling lower extremities, cap refill greater than 2 seconds Date exam was performed: 09/19/24 Time exam was performed: 05:35 Data 09/19/24 01:20 09/19/24 01:20 Micro: Microbiology 09/19/24 01:25 Blood Culture - Preliminary Blood SPECIMEN COLLECTED 09/19/24 01:20 Blood Culture - Preliminary Blood SPECIMEN COLLECTED A&P Assessment and plan (1) Septic shock: (2) NSTEMI (non-ST elevated myocardial infarction): (3) Transaminitis: (4) Acute kidney injury: (5) Acute encephalopathy: Plan Septic shock -Currently source of sepsis is being investigated in the emergency room -UA within normal limits -Chest x-ray no focal findings -CT chest ordered -Does have transaminitis, elevated alk phos although bilirubin is within normal limits, does appear jaundice, gallbladder ultrasound CT scan abdomen pelvis ordered -Given fevers, chills, altered mental status, complaints of neck pain and back pain although Kernig sign negative, Bruschi sign negative, possible seizure-like episode witnessed by patient's evening associate with urinary and bowel incontinence, will start presumptive treatment for meningitis, will give 10 mg IV push Decadron, will receive Zyvox, meropenem -Will likely need a lumbar puncture based on clinical progress -CT head ordered -Follow blood culture ? Respiratory viral panel within normal limits -Receiving meropenem, Zyvox, will change to vancomycin -Acute kidney injury, creatinine 1.7, IV fluids -Septic shock maintain MAP greater than 65, currently on Levophed, PICC line ordered -Acute encephalopathy, neurochecks, and a stroke scale, aspiration precaution, keep n.p.o. -Transaminitis, HIV negative, acute hep panel negative, workup as above including CT abdomen pelvis, gallbladder ultrasound -NSTEMI, no chest pain complaints, EKG no acute ST-T wave changes, cardiac echo ordered, will hold off on heparin drip until lumbar puncture can be done, once completed will anticoagulate for at least 48 hours -Etiology of NSTEMI, type I versus type II -Full code -SCDs for DVT prophylaxis, heparin drip later on once his lumbar puncture completed -Currently awaiting CT chest abdomen pelvis, gallbladder ultrasound to await disposition in the emergency room, if there is any evidence of obstructive uropathy or acute ascending cholangitis we will have to transfer to tertiary level center, -Already receiving presumptive treatment for acute bacterial meningitis Attestations 2 Medical Necessity Statement*: Patient requires hospitalization, inpatient, greater than 2 midnights, for septic shock, acute renal failure, acute encephalopathy, NSTEMI Coding Level of Care Code Critical Care >/= 30 minutes Critical care time (in minutes): 45 The high probability of a clinically significant, sudden or life threatening deterioration, as referenced in this documentation, required my full and direct attention, intervention and personal management. The critical care time shown is in addition to time spent performing any reported separately billable procedures and includes the following: [x] Data and vital sign review and interpretation [x ] Patient assessment, examination and intervention [x] Medication orders and management [x] Patient/Family updates as able [x] Care Coordination and Documentation. Diagnoses Septic shock A41.9; R65.21 NSTEMI (non-ST elevated myocardial infarction) I21.4 Transaminitis R74.01 Acute kidney injury N17.9 Acute encephalopathy G93.40
--- NOTE | 2024-09-19 05:51 | FL_ITS ---
WS: [id number] LUMBAR PUNCTURE UNDER FLUOROSCOPY: OBTAIN CSF FOR ANALYSIS HISTORY: ams COMPARISON: CT head 09/19/2004 is reviewed. FLUOROSCOPY TIME: 0min [id number] # of spot films: 1 Procedure, complications, and risk and benefits explained to the patient. Consent was obtained. Recen t laboratory work and medication are reviewed prior to procedure. Skin over the lumbar is cleansed with ChloraPrep and anesthetized with 1% buffered lidocaine. Access into the thecal sac is achieved. CSF is removed in a sterile manner and placed in the sterile tubes. Approximately 10 ml is removed without difficulty. CSF is clear. No complications are encountered. CSF sent to the laboratory for analysis as requested. FL/FL guided lumbarpunc dx* [id number] IMPRESSION: Uncomplicated lumbar puncture for CSF.
[2024-09-19 06:07] LABS: INR 1.45 (0.8-1.2)
--- NOTE | 2024-09-19 06:33 | USR_ITS ---
PROCEDURE INFORMATION: Exam: US Duplex Upper Extremity Veins, Bilateral, Complete Exam date and time: 09/19/2024 4:23 PM Age: 68 years old Clinical indication: Abnormal findings; Abnormal imaging study of limbs; Veins; CT; Additional info: Gas density in charissa please evaluate charissa up, to bilateral jugular charissa TECHNIQUE: Imaging protocol: Real-time duplex ultrasound of the extremities with 2-D esparza scale, color Doppler flow and spectral waveform analysis including responses to compression and other maneuvers (when performed) with image documentation. Complete exam focused on the bilateral upper extremity veins. COMPARISON: CT neck wo con [id number] 09/19/2024 6:49 AM FINDINGS: Right deep veins: . Axillary and brachial veins are patent throughout without thrombus. Normal Doppler waveforms. Normal compressibility and/or augmentation response. In the right innominate vein seen on the cine images is echogenic material which appears to be mobile. No occlusive thrombus. The internal jugular and subclavian veins are normal.. Left deep veins: Unremarkable. Axillary and brachial veins are patent throughout without thrombus. Normal Doppler waveforms. Normal compressibility and/or augmentation response. Visualized internal jugular and subclavian veins are patent. Superficial veins: Unremarkable. Visualized cephalic and basilic veins are patent without thrombus. Soft tissues: Unremarkable. US/[place] [id number] IMPRESSION: Indeterminate mobile echogenic material within the right innominate vein is indeterminate. No identifiable thrombus.
[2024-09-19 06:34] LABS: Covid PCR NEGATIVE (Negative); Influenza A NEGATIVE (Negative); Influenza B NEGATIVE (Negative); Respiratory Syncytial Virus Ce NEGATIVE (Negative)
--- NOTE | 2024-09-19 06:35 | CTR_ITS ---
PROCEDURE INFORMATION: Exam: CT Neck Without Contrast Exam date and time: 09/19/2024 6:49 AM Age: 68 years old Clinical indication: Abnormal findings; Abnormal radiologic study of neck; Additional info: Elongated fluid-filled paratracheal cystic mass seen on the, CT TECHNIQUE: Imaging protocol: Computed tomography of the neck without contrast. Radiation optimization: All CT scans at this facility use at least one of these dose optimization techniques: automated exposure control; mA and/or kV adjustment per patient size (includes targeted exams where dose is matched to clinical indication); or iterative reconstruction. COMPARISON: [place] [id number] 09/19/2024 4:51 AM RADIATION DOSE METRICS: Total DLP (mGy-cm): 235.12 FINDINGS: Paranasal sinuses: Fluid and mucosal thickening is seen within the ethmoidal sinuses bilaterally and within the maxillary sinuses. Salivary glands: Normal. Glands are normal in size. Pharynx: Unremarkable. No significant tonsillar enlargement. Prevertebral and retropharyngeal spaces: Unremarkable. Larynx: Unremarkable. Epiglottis is normal. Thyroid: Normal. No enlarged or calcified nodules. Trachea: Visualized trachea is unremarkable. Lungs: See Mediastinal space finding. Mediastinal space: A cystic masses again seen within the superior mediastinum on the right corresponding with the cystic paratracheal mass seen on the CT examination. 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 As previously noted the CT examination of the chest, there are ectopic gas densities within right internal jugular, the right subclavian vein and the left subclavian vein. There are scattered ectopic gas density seen in small vessels of the soft tissues of the neck and within the right cavernous sinus. Lymph nodes: Unremarkable. No lymphadenopathy. Bones/joints: Unremarkable. No acute fracture. Soft tissues: See Mediastinal space finding. CT/CT neck wo con [id number] IMPRESSION: 1. 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 2. Scattered ectopic venous gas densities as previously reported and now seen within small veins in the soft tissues of the neck and within the right cavernous sinus.
--- NOTE | 2024-09-19 07:23 | PC.NURSE ---
per Dr. Knowles to change Decadron Q6H order to start now d/t missed dose @0300; normal saline fluids delayed from previous shift as well.
[2024-09-19] MEDS: dexamethasone 10 mg/mL INJ IVP ×3 (07:32→19:36)
[2024-09-19] MEDS: meropenem 1,000 mg SDV 1500 MG IVP (07:33)
[2024-09-19] MEDS: sodium chloride 0.9% 1,000 ML 75 ML IV ×2 (07:33→21:25)
[2024-09-19 07:52] LABS: Troponin 5 6HR 146.7 ng/L (0-15); Troponin 5 6HR Delta -32.3 ng/L (0-12)
--- NOTE | 2024-09-19 08:04 | PC.NURSE ---
report called to Delano Kline RN in ICU, no further questions
--- NOTE | 2024-09-19 08:16 | ECG_ITS ---
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 Measurements Intervals [place] Rate: 81 P: 64 OK: 140 QRS: 35 QRSD: 91 T: 39 QT: 354 QTc: 413 Interpretive Statements SINUS RHYTHM Compared to ECG 09/19/2024 07:09:21 No significant changes Electronically Signed On 09-19-2024 19:52:10 DOPE HEATER by Kristy Luis M.D. [email or web address]
--- NOTE | 2024-09-19 08:18 | ECG_ITS ---
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 Measurements Intervals [place] Rate: 102 P: 62 RI: 151 QRS: 28 QRSD: 86 T: 36 QT: 321 QTc: 418 Interpretive Statements SINUS TACHYCARDIA ABNORMAL RHYTHM ECG No previous ECG available for comparison Electronically Signed On 09-19-2024 19:57:30 [employer] MECHANIC by Kristy Luis M.D. [email or web address]
--- NOTE | 2024-09-19 08:33 | PHA.VACGOAL ---
Vancomycin Goal - Goal Vancomycin Goal:: 15-20 mg/L Vancomycin Indication:: Other (SEPSIS) - Therapy Current therapy:: Meropenem Day of therpy:: Day [1]of [] . Actual body weight (kg): 71.214 kg - Data Labs: WBC 7.65 10^3/uL (3.29-11.43) 09/19/24 01:20 RBC 4.70 10^6/uL (3.85-5.65) 09/19/24 01:20 Hgb 14.30 g/dL (11.27-16.99) 09/19/24 01:20 Hct 42.6 % (37-53) 09/19/24 01:20 MCV 90.6 fl (82-101) 09/19/24 01:20 MCH 30.4 pg (27-33) 09/19/24 01:20 MCHC 33.6 g/dL (30-55) 09/19/24 01:20 RDW 12.5 % (12.1-15.1) 09/19/24 01:20 Sodium 139 mmol/L (136-145) 09/19/24 01:20 Potassium 3.2 mmol/L (3.5-5.1) L 09/19/24 01:20 Chloride 102 mmol/L (98-107) 09/19/24 01:20 Carbon Dioxide 24 mmol/L (22-29) 09/19/24 01:20 Anion Gap 16.2 (5-19) 09/19/24 01:20 BUN 33 mg/dL (8-23) H 09/19/24 01:20 Creatinine 1.6 mg/dL (0.7-1.2) H 09/19/24 01:20 GFR Calculation 43.5 mL/min (90-130) L 09/19/24 01:20 Treatment plan:: new consult Regimen:: New start vancomycin for sepsis. Patient received linezolid and meropenem in the ED. Stopping linezolid and starting vancomycin. 2000 mg load dose ordered and started on maintenance dose of 500 mg q12h based on population based pharmacokinetic Nomogram.
[2024-09-19 08:42] LABS: Basophils # 0.1 10^3/uL (0.0-0.1); Basophils % 0.5 %; Eosinophils % 0.1 %; Hematocrit 42.3 % (37-53); Lymphocytes # 0.4 10^3/uL (0.8-4.8); Lymphocytes % 2.1 %; Mean Corpuscular HGB Conc 32.2 g/dL (30-55); Mean Corpuscular Hemoglobin 30.6 pg (27-33); Mean Corpuscular Volume 95.3 fl (82-101); Mean Platelet Volume 11.5 fL (7.4-10.4); Monocytes # 0.7 10^3/uL (0.2-0.9); Monocytes % 3.8 %; Neutrophils # 17.24 10^3/uL (1.8-7.7); Neutrophils % 91.2 %; Nucleated Red Blood Cells % 0 %; Platelet Count 85 10^3/cmm (157-399); Red Blood Count 4.44 10^6/uL (3.85-5.65); Red Cell Distribution Width 12.8 % (12.1-15.1)
[2024-09-19 08:47] LABS: Amphetamines Screen Urine Negative (Negative); Barbiturates Screen Urine Negative (Negative); Benzodiazepines Screen Urine Negative (Negative); Cocaine Screen Urine Negative (Negative); Opiate Screen Urine Positive (Negative); PCP Screen Urine Negative (Negative); THC Screen Urine Negative (Negative)
[2024-09-19 08:54] LABS: Alanine Aminotransferase 120 U/L (0-41); Albumin Level 3.1 g/dL (3.5-5.2); Alkaline Phosphatase 77 U/L (40-130); Aspartate Amino Transferase 154 U/L (0-40); Blood Urea Nitrogen 35 mg/dL (8-23); Calcium 8.1 mg/dL (8.5-10.5); Carbon Dioxide 19 mmol/L (22-29); Chloride 104 mmol/L (98-107); Chol HDL Ratio 1.45 mg/dL (1.0-5.00); Cholesterol 90 mg/dL (0-200); Creatinine Clr Calc Pharmacy 46.4335; Globulin 2.4 g/dL (1.3-4.6); Glomerular Filtration Rate 43.5 mL/min (90-130); Glucose 124 mg/dL (65-115); HDL Cholesterol 62 mg/dL (60-100); LDL Cholesterol Calculated 18 mg/dL (50-129); LDL HDL Ratio 0.29 RATIO (0.00-3.22); Osmolality Calculated 287 mOsm/kg (285-295); Sodium 134 mmol/L (136-145); Total Bilirubin 1.3 mg/dL (0.15-1.2); Total Protein 5.5 g/dL (6.6-8.7); Triglycerides 49 mg/dL (0-150)
[2024-09-19 08:55] LABS: Alcohol Level < 10 mg/dL (0-10)
[2024-09-19 08:57] LABS: Slide Review Slide Review Perform
[2024-09-19] MEDS: pantoprazole 40 mg SDV IVP (09:28)
[2024-09-19] MEDS: potassium chloride ER 20 mEq Tablet 40 MEQ PO (09:29)
[2024-09-19 09:34] LABS: Iron 9 ug/dL (59-158); Percent Saturation 6.2 % (20-50); Total Iron Binding Capacity 145 mcg/dl; Unsaturated Iron Binding 136 ug/dL (112-347)
[2024-09-19 09:50] LABS: Vitamin B12 745 pg/mL (232-1245)
--- NOTE | 2024-09-19 10:32 | XR_ITS ---
WS: [id number] CHEST XRAY TECHNIQUE: Portable chest. CLINICAL INFORMATION: Post PICC insertion FINDINGS: RIGHT PICC line good position at the SVC/RA junction. No pneumothorax. XR/XR chest 1V portable [id number] IMPRESSION: RIGHT PICC line in good position
[2024-09-19 10:45] LABS: Appearance CSF CLEAR (CLEAR); Color CSF COLORLESS (COLORLESS); Pathology Referral Yes
[2024-09-19 10:49] LABS: CSF Mononuclear # 0.003 10^3/uL (50-90); Mononuclear WBC CSF % 100 % (50-90); Polynuclear WBC CSF % 0 % (0-10); Red Blood Cell CSF 0 10^3/uL (0-0); White Blood Cell CSF 3 /uL (0-5)
[2024-09-19 10:51] LABS: CSF Specific Gravity 1.006
[2024-09-19 10:52] LABS: Cyto Order Verification No Order
[2024-09-19 11:04] LABS: Glucose CSF 69 mg/dL (40-70); Total Protein CSF 58 mg/dL (15-45)
[2024-09-19 11:34] LABS: Gamma Glutamyl Transferase 59 U/L (8-61); Lactate Dehydrogenase 301 U/L (135-225)
--- NOTE | 2024-09-19 11:41 | PICC.NOTE ---
Triple lumen PICC placed to right basilic vein. Referred to vascular access nurse for PICC placement due to poor access and need for vasopressors. Risks and benefits discussed and informed consent obtained from pt , Tricia, due to pt lethargy following lumbar puncture. Right arm assessed with right basilic vein measuring 6.0 mm, straight, and apparent best choice for placement. Using sterile technique and MST, right basilic vein accessed x 1 stick. Mid-arm circumference measured 10 cm from right AC 30 cm. Trimmed cath 40 cm with 3 cm external length noted. CXR shows tip in distal SVC/RA junction, in good position for use per radiologist. Line secured with stat-lock. Insertion site covered with Biopatch and TSM. Report given to bedside nurse, PRESTON Wick.
[2024-09-19 11:44] LABS: Creatine Phosphokinase 473 U/L (39-308)
[2024-09-19 11:47] LABS: Partial Thromboplastin Time 41.2 SECONDS (23.9-36.7)
[2024-09-19] MEDS: heparin drip 25,000 UNIT/500 ML PREMIX 20 UNIT IV (11:51)
[2024-09-19] MEDS: vancomycin 2,000 MG/400 ML PIGGYBACK 200 MG IV (11:55)
[2024-09-19] MEDS: aspirin 325 mg EC Tablet PO (11:59)
--- NOTE | 2024-09-19 12:42 | USCV_ITS ---
Christopher Rain Age: 68 Gender: M : 1955 Exam Date: 09/19/2024 14:13 Ordering Phys: Fritz Knowles MD Technologist: USR Exam Location[place] [facility] [place] Indication: dvt HISTORY: rule out dvt PROCEDURES: Venous duplex imaging was performed in bilateral lower extremities. The following venous structures were evaluated: common femoral vein, profunda vein, proximal portion of the greater saphenous vein, superficial femoral vein, and the popliteal vein. In addition, the posterior tibial and peroneal trunk were evaluated. Bilaterally, the common femoral, superficial femoral, profunda femoral, popliteal, posterior tibial, greater saphenous veins, and the peroneal trunk were identified and interrogated in the standard fashion. These veins were found to be easily compressible with spontaneous blood flow. No evidence of insufficiency or thrombus noted. Serial compression, augmentation maneuvers, and spectral Doppler flow evaluation were performed. FINDINGS: No evidence of DVT seen in any vessel visualized at this time. CONCLUSIONS No evidence of right lower extremity DVT. No evidence of left lower extremity DVT. Rodrick Toscano MD (Electronically Signed) Final Date: 19 September 2024 15:32 S
--- NOTE | 2024-09-19 12:42 | USCV_ITS ---
Kingaevette Christopher Age: 68 Gender: M : 1955 Exam Date: 09/19/2024 14:06 Ordering Phys: Fritz Knowles MD Technologist: USR Exam Location: [facility] – [place] Indication: confusion Risk Factors: Previous Vascular Surgery: Right Brachial BP: / Left Brachial BP: / Right Left Velocity (cm/s) Spectral Plaque Velocity (cm/s) Spectral Plaque Syst/Diast Broadening Syst/Diast Broadening 72.90/ 16.50 Prox CCA 84.70 / 22.90 87.30/ 16.30 Mid CCA 82.60 / 20.30 67.70/ 17.40 Distal CCA 81.40 / 20.10 64.60/ 15.10 Prox ICA 66.60 / 14.20 60.80/ 13.80 Mid ICA 60.70 / 16.70 44.80/ 16.70 Distal ICA 43.10 / 16.70 81.30 ECA 63.90 1.00 ICA/CCA 0.80 Antegrade Vertebral Antegrade 52.00/ 14.50 cm/s 44.90/ 18.10 cm/s Tri Subclavian Tri 48.80 83.30 CONCLUSIONS Right ICA stenosis <50%. Mild atheromatous plaque right carotid bulb/ICA. Left ICA stenosis <50%. Mild atheromatous plaque left carotid bulb/ICA. Normal antegrade Doppler flow noted in the right vertebral artery. Normal antegrade Doppler flow noted in the left vertebral artery. Rodrick Toscano MD (Electronically Signed) Final Date: 19 September 2024 15:34 S
--- NOTE | 2024-09-19 13:05 | P.PN_ITS ---
Subjective 2 Subjective: Patient admitted overnight. Seen in the ER. Benefit of being back. Currently on Levophed of 10 with mean arterial pressure over 70. Awake and alert but tired appearing. Denies of having any nausea, vomiting. Complaining of mild headache. Patient states he has been having chills and rigors for around 2 days. States he was feeling fine when he went to bed and does not remember anything after that. It seems patient was admitted for septic shock and altered mental status overnight. He has moved from [place] in December and is making a new house in [place]. He is around poultry and domestic animals. Denies any animal bites. Denies being around rodents. Denies any sick contacts or history of long-term illness in the past. Consumes alcohol occasionally. Denies any recreational drug use. Denies any recent trauma. Has not seen a physician in a long time. Vitals/I&O/Wt Last Vital Signs Temp 99 F 09/18/24 23:40 Pulse 82 09/19/24 09:07 Resp 19 H 09/19/24 06:00 BP 120/82 09/19/24 09:07 Pulse Ox 94 09/19/24 09:07 O2 Del Method Room Air 09/19/24 00:39 09/18/24 09/19/24 09/19/24 22:59 06:59 14:59 Intake Total 2600 / 2600 501 / 501 Balance 2600 / 2600 501 / 501 Weight last 48 hrs Weight 71.214 kg Physical Exam 2 Narrative: General: No acute distress, AO x3, Sick appearing, tired appearing, dehydrated HEENT: PERRLA, pupils bilaterally equal and reactive Chest: Normal vesicular breath sounds, no added sounds, equal good air entry bilaterally CVS: S1-S2 regular, no murmurs, no tachycardia, no gallops, no rubs Abdomen: Soft, nontender, no organomegaly, bowel sounds present Neuro: No focal deficits, no facial deformity, AO x3, power 5/5 in all limbs Data 09/20/24 04:10 09/20/24 04:10 Micro: Microbiology 09/19/24 10:20 Gram Stain - Final Cerebrospinal Fluid Cryptococcal Antigen (CSF) - Final 09/19/24 10:20 Bacterial Antigens - Final Cerebrospinal Fluid 09/19/24 03:15 Bacterial Antigens - Final Urine Kidney 09/19/24 01:25 Blood Culture - Preliminary Blood SPECIMEN COLLECTED 09/19/24 01:20 Blood Culture - Preliminary Blood SPECIMEN COLLECTED A&P Assessment and plan (1) Septic shock: Keep mean artery pressure over 65. Wean Levophed accordingly. Patient dehydrated. SIRS: Tachycardic, Febrile, Leukocytosis Source: Unknown End organ damage: Acute infectious encephalopathy, JELENA, transaminitis Lactic acid elevated Patient did receive full 30 mL/kg BW. Continue with normal saline at 75 cc/h. Monitor blood pressures. Keep mean artery pressure 65 mmHg. Follow-up blood culture, urine culture, MRSA swab, procalcitonin, urine Legionella, bacterial antigen. UA negative for any concerns for UTI. CT abdomen pelvis negative for intra-abdominal pathology, collection, cholangitis. Patient is on room air. Low concern for pneumonia. Complaining of headache but does not have any photophobia. Mild nausea. Plan to undergo lumbar puncture later in the day. Will follow-up CSF studies. Will order a [employer] meningitis panel. For now continue with antibiotics as per meningitis dosage with meropenem and vancomycin. Patient does have ectopic gaseous shadows and venous system including brachiocephalic, IJ, pectoralis, going up to cavernous system. Discussed in detail with neurology and radiology on-call. Concerns for air embolism. Patient remains on room air though. Though less likelihood but consideration of Lemierre's syndrome. Patient denies any dental work, sores in the mouth, sore throat, dental pain. Check ESR, CRP, bilateral upper limb venous duplex, carotid artery arterial duplex. Will hold off on CT with contrast given JELENA. There is a concern for bronchogenic cyst though does not seem infected on CT. (2) NSTEMI (non-ST elevated myocardial infarction): Denies chest pain. Troponin cycle elevated on admission. Delta in 2 hours positive. Non-ST elevation [place] versus demand ischemia. Echocardiogram concerning for new low EF of 45% with grade 1 diastolic dysfunction, thickened aortic and mitral valve with PASP of 35 mmHg. Aspirin 81 mg daily, hold off on statin given transaminitis. Will start on beta-blockers once hemodynamically stable and off Levophed. Continue with heparin drip. Plan for possible cardiac stress test versus angiogram once patient is more hemodynamically stable. Will consult cardiology. (3) Congestive heart failure: Currently dehydrated. Continue the IV fluids while monitoring for fluid overload. Will start on guideline directed medical therapy once patient is more hemodynamically stable. (4) Acute kidney injury: Most likely in setting of dehydration and septic shock. Medical reconciliation done for nephrotoxic drugs. Monitor urine output. Patient is denying Graham catheter. Normal saline at 75 cc/h. Monitor BMP daily for now. (5) Transaminitis: Possibly in setting of septic shock. Check urine drug screen, alcohol level. HIV, hepatitis negative. Monitor daily. (6) Acute encephalopathy: (7) Thrombocytopenia: Continue to monitor. No active signs of bleeding. (8) Rhabdomyolysis: IV fluid as above. Daily CPK. Plan Full code Cardiac diet Heparin drip be sufficient for DVT prophylaxis Protonix for PUD prophylaxis Will request documents from patient's outpatient physician in [place]. Attestations 2 Medical Necessity Statement*: Requires further hospitalization for management of septic shock, JELENA, non-STEMI, transaminitis Critical Care Time: The high probability of a clinically significant, sudden or life threatening deterioration of the patient's [Cardiac, renal, GI, vasopressors] system(s) required my full and direct attention, intervention and personal management. The critical care time is as shown. This time is in addition to time spent performing any reported procedures but includes the following: [x] Data and vital sign review and interpretation [x] Patient assessment, examination and intervention [x] Documentation [x] Medication orders and management Critical Care Time (min): 60 Coding Level of Care Code Critical Care >/= 30 minutes Critical care time (in minutes): 60 The high probability of a clinically significant, sudden or life threatening deterioration, as referenced in this documentation, required my full and direct attention, intervention and personal management. The critical care time shown is in addition to time spent performing any reported separately billable procedures and includes the following: [x] Data and vital sign review and interpretation [x ] Patient assessment, examination and intervention [x] Medication orders and management [x] Patient/Family updates as able [x] Care Coordination and Documentation. Other Coding Information Prolonged care (total time indicated above or notated here) (Managing pressors, coordinating lumbar puncture, assessing CSF results) Diagnoses Septic shock A41.9; R65.21 NSTEMI (non-ST elevated myocardial infarction) I21.4 Congestive heart failure I50.9 Acute kidney injury N17.9 Transaminitis R74.01 Acute encephalopathy G93.40 Thrombocytopenia D69.6 Rhabdomyolysis M62.82
[2024-09-19 13:19] LABS: C Reactive Protein 145.4 mg/L (0.0-4.9)
[2024-09-19 13:20] LABS: D Dimer 19.93 ug/mLFEU (0-0.59)
[2024-09-19 13:40] LABS: Erythrocyte Sedimentation Rate < 1 mm/hr (0-10)
[2024-09-19] MEDS: metroNIDAZOLE IV 500 MG/100 ML PREMIX 100 MG IV ×2 (14:08→21:16)
--- NOTE | 2024-09-19 14:45 | P.CONIM_ITS ---
<Statement entered by Teto Wahl M.D - 09/19/24 19:55> Patient was evaluated and cared for in conjunction with an advanced practice practitioner. I personally examined the patient and reviewed the chart and all pertinent data including imaging, telemetry, and laboratory results. I discussed the patient in detail with the advanced practice practitioner. Please see their note for complete consult note, results and agreed upon plan of care for the patient. Briefly patient has been admitted with septic shock,now off pressors. Denies chest pain or shortness of breath. EKG not showing ischemic changes. Troponins elevated but trended down at [address] scan showing gas densities in venous system. ECHO showing mildly reduced LV systolic function GENERAL: Patient is alert and oriented HEART: Regular S1 and S2, grade 2/6 systolic murmur LUNGS: Diminished air entry bilaterally EXTREMITIES: Lower extremities with no edema Assesment and Plan (1) Troponin elevation (2) Congestive heart failure: (3) Thrombocytopenia: (4) Hypotension: (5) Sepsis Patient presented with septic shock.Source of infection is not clear at this time. ECHO not showing obvious vegetations. If no other source found and blood cultures grow typical agents, can consider JG. Antibiotic therapy per primary team Troponin elevation likely related to demand ischemia. However with low EF appropriate to continue anticoagulation if tolerates. Thank you for involving us with care of this patient. We will continue to follow. Please call with questions. Providers/Reason For Consult 2 Consulting Physician/Specialty*: Dr. Wahl Reason for Consult*: NSTEMI, systolic heart failure Requesting Physician: Dr. Knowles Attending Physician: Fritz Knowles MD History of Present Illness History of Present Illness This is a very pleasant 68-year-old gentleman who came to the emergency room today around midnight for weakness. He had woke up with chills and sweats and became very weak. He also had rigors and reported a high fever at home. Denied chest pain or shortness of breath at that time. He was found to have low platelets and elevated creatinine at 1.6 with an elevated lactate at 2.7. He was diagnosed with septic shock and was given a fluid bolus and sepsis quality measures was initiated. There is no known source of the infection at this time. EKG showed sinus rhythm with no acute ST or T wave abnormalities. White cell count is currently high at 18.9. Procalcitonin was elevated 98. Troponin was 179 at baseline and at 120 minutes was 189.8 and at 6 hours was 146.7. Delta was positive. Patient had a CT abdomen pelvis that initially showed ectopic gas densities in the left brachiocephalic vein right internal jugular vein and right internal thoracic vein. Patient did have a right PICC line placed previously. Lumbar puncture was performed as well. A neck CT showed scattered venous gas densities within small veins in the soft tissues of the neck and the right cavernous sinus. Echo was performed that showed mild diffuse hypokinesia of the left ventricle EF of 44% mild left ventricular hypertrophy and grade 2 out of 4 diastolic dysfunction. At the time of my exam patient denies any chest pain or shortness of breath. He is resting comfortably with an oxygen saturation of 94% on room air. He has never been a smoker no known coronary artery disease or heart issues. No diabetes. No history of hypercholesterolemia. Review of Systems 2 Narrative: Consitutional: denies fever, chills, body aches, or changes in appetite, denies abnormal weight loss Eyes: Denies changes in vision Card: Denies chest pain, palpitations, irregular heart rhythm, edema, syncope, shortness of breath, orthopnea, leg pain with exertion Resp: Denies shortness of breath, denies hemoptysis, denies cough GI: denies abdominal pain, denies nausea or voimting, denies blood in stool : denies blood in urine, denies dysuria Musc: Denies extremity pain, denies limited range of motion or recent injury Skin: Denies rash, lesions, or wounds, denies changes to skin color Neuro: Denies nubmness in extremities, h/a, s/s of stroke Ha: Denies easy bruiding/bleeding Medications/Allergies Home Medications Medication Instructions Recorded Confirmed Last Taken Type No Known Home Medications 09/19/24 09/19/24 Unknown History Allergies Allergy/AdvReac Type Severity Reaction Status Date / Time Sulfa (Sulfonamide Allergy Mild ALGY-Rash Verified 09/19/24 03:06 Antibiotics) Current Medications Generic Name Dose Route Start Last Admin Trade Name Freq PRN Reason Stop Dose Admin Dexamethasone 10 mg 09/19/24 03:15 09/19/24 14:22 Dexamethasone 10 Mg/Ml Inj IVP 10 mg Q6H DAGOBERTO Administration Norepinephrine Bitartrate 4 mg in 250 mls @ 0 mls/hr 09/19/24 03:00 09/19/24 09:46 Levophed IV 8 mcg/min .Q0M DAGOBERTO 30 mls/hr Administration Protocol Per Protocol Sodium Chloride 1,000 mls @ 75 mls/hr 09/19/24 04:15 09/19/24 07:33 Sodium Chloride 0.9% IV 75 mls/hr .[id number] DAGOBERTO Administration Heparin Sodium/Sodium Chloride 25,000 unit in 500 mls @ 0 mls/hr 09/19/24 10:45 09/19/24 11:51 Heparin Drip IV 14.04 unit/kg/hr CONT DAGOBERTO 20 mls/hr Administration Protocol Per Protocol Metronidazole 500 mg in 100 mls @ 100 mls/hr 09/19/24 13:00 09/19/24 14:08 Flagyl Iv IV 100 mls/hr Q8H DAGOBERTO Administration Protocol Pantoprazole Sodium 40 mg 09/19/24 08:23 09/19/24 09:28 Pantoprazole 40 Mg Sdv IVP 40 mg Q24H DAGOBERTO Administration PFSH Acute 2 PFSH: Medical History (Updated 09/19/24 @ 14:58 by Nicky Mittal NP) BPH (benign prostatic hyperplasia) Social History (Updated 09/19/24 @ 05:33 by Hollis Naidu MD) Smoking and tobacco/nicotine status: never used tobacco/nicotine Alcohol intake: current Alcohol intake frequency: few times a month Substance/Drug Use: never Vitals/I&O/Wt Last Vital Signs Temp 99 F 09/18/24 23:40 Pulse 82 09/19/24 09:07 Resp 19 H 09/19/24 06:00 BP 120/82 09/19/24 09:07 Pulse Ox 94 09/19/24 09:07 O2 Del Method Room Air 09/19/24 00:39 09/18/24 09/19/24 09/19/24 22:59 06:59 14:59 Intake Total 2600 / 2600 501 / 501 Balance 2600 / 2600 501 / 501 Weight last 48 hrs Weight 157 lb Physical Exam 2 Narrative: General: No apparent distress, healthy appearing, well nourished HENMT: normoceophalic Muskuloskeletal: Full ROM Lymphatic: no lymphedema noted Respiratory: Normal respiratory effort, clear to auscultation bilaterally throughout all lung draper, no use of accessory muscles Cardio: No JVD, regular rate, regular rhythm, S1 S2 normal, systolic murmur grade II/V right second intercostal space GI: Normal to inspection, nondistended Extremities: Full ROM, normal, normal capillary refill, no cyanosis or edema Neuro: Alert and oriented x4, no focal motor deficits Psych: Affect normal, denies suicidal ideation, mental status grossly normal Skin: No rashes or lesions noted, no wounds Data 09/19/24 07:08 09/19/24 07:08 Micro: Microbiology 09/19/24 10:20 Gram Stain - Final Cerebrospinal Fluid Cryptococcal Antigen (CSF) - Final 09/19/24 10:20 Bacterial Antigens - Final Cerebrospinal Fluid 09/19/24 03:15 Bacterial Antigens - Final Urine Kidney 09/19/24 01:25 Blood Culture - Preliminary Blood SPECIMEN COLLECTED 09/19/24 01:20 Blood Culture - Preliminary Blood SPECIMEN COLLECTED A&P Assessment and plan (1) NSTEMI (non-ST elevated myocardial infarction): (2) Congestive heart failure: Qualifiers: Heart failure type: systolic Heart failure chronicity: acute Qualified Code(s): I50.21 - Acute systolic (congestive) heart failure (3) Thrombocytopenia: (4) Hypotension: Qualifiers: Hypotension type: idiopathic hypotension Qualified Code(s): I95.0 - Idiopathic hypotension Plan Patient has elevated troponin with reduced ejection fraction of 44%. Currently patient is septic and he has just gotten off Levophed. Will wait to treat with goal-directed medical therapy such as Entresto or beta-blockers due to hypotension requiring pressors and sepsis. At this time patient is chest pain- free without significant EKG changes. Will let patient recover from his infection. Once this clears, we will further perform workup on the patient with either a stress test or consider a coronary angiogram. Elevated troponin and low EF may be due to demand ischemia from the septic shock. Troponin has trended down. Can continue heparin drip for 48 hours. Will continue to monitor patient for chest pain and EKG changes. Thank you for allowing us to take care of this gentleman. Consult Attestations 2 Medical Necessity Statement: Deferred to primary. Coding Level of Care Code Acute Code for [facility] Diagnoses NSTEMI (non-ST elevated myocardial infarction) I21.4 Acute systolic congestive heart failure I50.21 Heart failure type: systolic Heart failure chronicity: acute Thrombocytopenia D69.6 Idiopathic hypotension I95.0 Hypotension type: idiopathic hypotension
[2024-09-19] MEDS: meropenem 1,000 mg SDV 1000 MG IVP (17:01)
[2024-09-19 18:27] LABS: Partial Thromboplastin Time 96.8 SECONDS (23.9-36.7)
--- NOTE | 2024-09-19 19:05 | PC.NURSE ---
MAR Upon assessment of patient at 1900, levophed not administering while MAR displayed 8 mcg/min. MAR updated to reflect paused status.
--- NOTE | 2024-09-19 19:25 | PC.NURSE ---
SHift SUmmary: uneventful shift. Weaned off of levphed early in shift. Went for lumbar puncture. Blood cultures and LP results pending. started on heparin drip, no boluses due to low platelet count and LP today. Patient recently moved form [place]. His primary care provider there was Marcia ZHANG at [facility]. Medical record request has been sent to her facility.
[2024-09-19 21:08] LABS: MRSA PCR OZH (swab) NOT DETECTED (Negative)
[2024-09-19] MEDS: vancomycin 500 MG in sodium chloride 0.9% (plus) 100 ML 200 MG IV (21:16)
[2024-09-20] VITALS (70 sets, daily range): BP systolic 86–121; BP diastolic 51–89; PULSE 70–96; RESP 13–29; TEMP 36.4–36.7; O2SAT 82–100; BMI 23.6; BMI 23.5
[2024-09-20] MEDS: dexamethasone 10 mg/mL INJ IVP ×2 (01:21→08:13)
[2024-09-20 01:55] LABS: Partial Thromboplastin Time 97.4 SECONDS (23.9-36.7)
[2024-09-20] MEDS: metroNIDAZOLE IV 500 MG/100 ML PREMIX 100 MG IV (04:21)
[2024-09-20] MEDS: meropenem 1,000 mg SDV 1000 MG IVP ×2 (05:10→17:12)
[2024-09-20 05:18] LABS: Basophils # 0.1 10^3/uL (0.0-0.1); Basophils % 0.4 %; Lymphocytes # 1.2 10^3/uL (0.8-4.8); Lymphocytes % 5.3 %; Mean Corpuscular HGB Conc 33.6 g/dL (30-55); Mean Corpuscular Hemoglobin 30.7 pg (27-33); Mean Corpuscular Volume 91.4 fl (82-101); Mean Platelet Volume 12.4 fL (7.4-10.4); Monocytes # 0.8 10^3/uL (0.2-0.9); Monocytes % 3.3 %; Neutrophils # 18.95 10^3/uL (1.8-7.7); Neutrophils % 83.1 %; Nucleated Red Blood Cells % 0 %; Platelet Count 71 10^3/cmm (157-399); Red Blood Count 3.94 10^6/uL (3.85-5.65); Red Cell Distribution Width 13.1 % (12.1-15.1)
[2024-09-20 05:35] LABS: Lactic Sepsis W/Reflex 2.6 mmol/L (0.5-2.2)
[2024-09-20 05:37] LABS: Alanine Aminotransferase 91 U/L (0-41); Albumin Level 2.9 g/dL (3.5-5.2); Alkaline Phosphatase 65 U/L (40-130); Blood Urea Nitrogen 35 mg/dL (8-23); Calcium 7.7 mg/dL (8.5-10.5); Carbon Dioxide 19 mmol/L (22-29); Chloride 110 mmol/L (98-107); Creatinine Clr Calc Pharmacy 84.0494; Glomerular Filtration Rate 84.4 mL/min (90-130); Glucose 179 mg/dL (65-115); Magnesium 1.9 mg/dL (1.7-2.3); Osmolality Calculated 300 mOsm/kg (285-295); Phosphorus 1.9 mg/dL (2.5-4.5); Sodium 139 mmol/L (136-145); Total Bilirubin 0.4 mg/dL (0.15-1.2); Total Protein 4.9 g/dL (6.6-8.7)
[2024-09-20 05:38] LABS: Anion Gap 14.4 (5-19); Aspartate Amino Transferase 71 U/L (0-40); Potassium 4.4 mmol/L (3.5-5.1)
[2024-09-20 05:42] LABS: Slide Review Slide Review Perform
[2024-09-20 05:48] LABS: Folate Level 9.9 ng/mL (4.5-32.2)
--- NOTE | 2024-09-20 06:23 | PC.NURSE ---
Platelet Count Dr. Naidu notified of decreased platelet count with heparin drip administering.
[2024-09-20 06:59] LABS: Reflex Lactate Order REFLEX LACTIC ORDERD
[2024-09-20] MEDS: aspirin 81 mg EC Tablet PO (08:13)
[2024-09-20] MEDS: pantoprazole 40 mg SDV IVP (08:13)
[2024-09-20] MEDS: vancomycin 500 MG in sodium chloride 0.9% (plus) 100 ML 200 MG IV (08:13)
[2024-09-20] MEDS: sodium chloride 0.9% 1,000 ML 75 ML IV (08:14)
[2024-09-20] MEDS: acetaminophen 325 mg Tablet 650 MG PO (09:22)
[2024-09-20 09:50] LABS: Lactic Acid level (Lactate) 2.1 mmol/L (0.5-2.2)
--- NOTE | 2024-09-20 09:54 | P.PN_ITS ---
Subjective 2 Subjective: Patient is feeling better. No chest pain. Vitals/I&O/Wt Last Vital Signs Temp 97.8 F 09/20/24 09:24 Pulse 84 09/20/24 09:00 Resp 20 H 09/20/24 09:00 BP 108/74 09/20/24 09:00 Pulse Ox 97 09/20/24 09:00 O2 Del Method Room Air 09/20/24 09:00 09/19/24 09/20/24 09/20/24 22:59 06:59 14:59 Intake Total 2255.667 / 2991.667 211.733 / 3203.400 1203.65 / 1203.65 Output Total 650 / 1175 475 / 1650 Balance 1605.667 / 1816.667 -263.267 / 9133.100 1068.65 / 1203.65 Weight last 48 hrs Weight 164 lb 3.91 oz Weight 157 lb 4.8 oz Weight 157 lb Physical Exam 2 Narrative: GENERAL: Patient is alert, awake and oriented x3. HEART: Regular S1 and S2. No murmur, rub or gallop. LUNGS: Clear to auscultate bilaterally. CENTRAL NERVOUS SYSTEM: Grossly nonfocal. EXTREMITIES: Lower extremities with out edema bilaterally. Data 09/20/24 04:10 09/20/24 04:10 Micro: Microbiology 09/19/24 01:25 Blood Culture - Preliminary Blood Escherichia coli 09/19/24 01:20 Blood Culture - Preliminary Blood Escherichia coli 09/20/24 04:05 Blood Culture - Preliminary Blood SPECIMEN COLLECTED 09/20/24 04:10 Blood Culture - Preliminary Blood SPECIMEN COLLECTED 09/19/24 10:20 Gram Stain - Final Cerebrospinal Fluid Cryptococcal Antigen (CSF) - Final 09/19/24 10:20 Bacterial Antigens - Final Cerebrospinal Fluid 09/19/24 03:15 Bacterial Antigens - Final Urine Kidney A&P Assessment and plan (1) NSTEMI (non-ST elevated myocardial infarction): (2) Congestive heart failure: Qualifiers: Heart failure type: systolic Heart failure chronicity: acute Qualified Code(s): I50.21 - Acute systolic (congestive) heart failure (3) Thrombocytopenia: (4) Hypotension: Qualifiers: Hypotension type: idiopathic hypotension Qualified Code(s): I95.0 - Idiopathic hypotension Plan Patient is stable from cardiac standpoint at this time. Continue current medications including her anticoagulation. Can stop anticoagulation for tomorrow. Troponin elevation likely secondary to demand ischemia. However given no mild decrease in LV systolic function, once patient is stable, we will proceed with ischemic testing Blood culture growing e coli. Management per primary team Thank you for involving us with care of this patient. We will continue to follow. Please call with questions. Attestations 2 Medical Necessity Statement*: Care expected to cross 2 midnights. Coding Level of Care Code Acute Code for [facility] [place] Diagnoses NSTEMI (non-ST elevated myocardial infarction) I21.4 Acute systolic congestive heart failure I50.21 Heart failure type: systolic Heart failure chronicity: acute Thrombocytopenia D69.6 Idiopathic hypotension I95.0 Hypotension type: idiopathic hypotension
[2024-09-20] MEDS: heparin drip 25,000 UNIT/500 ML PREMIX 13 UNIT IV (10:48)
--- NOTE | 2024-09-20 13:05 | P.CONIM_ITS ---
Providers/Reason For Consult 2 Consulting Physician/Specialty*: Kristin Hadley MD/ Infectious Disease Reason for Consult*: E. coli sepsis Requesting Physician: Fritz Knowles MD Attending Physician: Fritz Knowles MD History of Present Illness History of Present Illness Christopher Rain is a 68 year old male without known prior comorbidities who was admitted to the hospital on 09/19/2024 after presenting with following acutely ill with fever chills and altered mental status. There was concern for meningitis for which patient underwent lumbar puncture which did not show signs of bacterial meningitis. Blood culture eventually ended up growing gram- negative rods which have been identified as E. coli. CT of the abdomen pelvis was performed for source evaluation. Grossly urinary and bowel systems are normal. Incidentally noted ectopic gas densities superimposing the left brachiocephalic vein, right internal jugular vein, right internal thoracic plane in the left pectoralis veins. Etiology was overall thought to be indeterminate. There is no history of placing any central lines. Patient does have a right- sided PICC, however it was placed after the above CAT scan was obtained. He was in septic shock, on pressors which have since been weaned off. Patient started treatment with IV meropenem, vancomycin, dexamethasone 10 mg IV every 6 hours due to concern for bacterial meningitis. He is currently significantly improved. Patient is now alert awake oriented. He is afebrile. Hemodynamically stable. Off Levophed since yesterday. Patient reports to me that he was feeling in his usual state of health until about 24 hours prior to admission. He developed chills and rigors which resolved spontaneously. He did not check his temperature at that time. Over the next day he was able to go about his usual ADLs until falling sick in the evening time. 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 They have recently moved here from [place]. 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 He wonders if eating with soiled hands may have led to his current symptoms. He denies any nausea vomiting diarrhea or chills. Does not recall eating anything unusual in the days leading up to admission. Denies any urinary complaints. Denies any prostate issues in the past. No history of known GI malignancy. Denies any recent trauma other than multiple nicks and cuts over his hand from working outdoors. Review of Systems 2 General: Reports: 10 or more systems reviewed and unremarkable except in HPI and below Const: Denies: fever(s), chills or body aches Eyes: Denies: change in vision, blurry vision or photophobia ENMT: Reports: hoarseness; Denies: throat pain, enlarged tonsils, odynophagia or nasal congestion Card: Denies: chest pain, palpitations, irregular heart rhythm, edema, swelling of feet/ankles, lightheadedness, pre-syncope, dyspnea on exertion or orthopnea Resp: Denies: dyspnea, productive cough, non-productive cough, wheezing, stridor, pain on inspiration, change in phlegm color, hemoptysis or chest congestion GI: Denies: abdominal pain, nausea, vomiting, hematemesis, coffee ground emesis, dysphagia, heartburn, diarrhea, constipation, GI cramping, change in stool character, hematochezia or melena : Denies: flank pain, dysuria, urinary frequency, urinary urgency, urinary hesitancy or hematuria Musc: Denies: neck pain, back pain, extremity pain, joint swelling, joint warmth or deformity Neuro: Denies: headache(s), numbness in extremities, weakness in extremities, sensory changes, difficulty walking, frequent falls, dizziness, vertigo, behavioral changes, Slurred speech present or seizure-like activity Psych: Denies: anxiety, depression, suicidal ideation or homicidal ideation Endo: Denies: polyuria, polydipsia, tired all the time, cold intolerance or hot flashes Ha/Lymph: Denies: easy bruising or easy bleeding Medications/Allergies Home Medications Medication Instructions Recorded Confirmed Last Taken Type No Known Home Medications 09/19/24 09/19/24 Unknown History Allergies Allergy/AdvReac Type Severity Reaction Status Date / Time Sulfa (Sulfonamide Allergy Mild ALGY-Rash Verified 09/19/24 03:06 Antibiotics) Current Medications Generic Name Dose Route Start Last Admin Trade Name Freq PRN Reason Stop Dose Admin Acetaminophen 650 mg 09/19/24 08:23 09/20/24 09:22 Acetaminophen 325 Mg Tablet PO 650 mg Q6H PRN Administration Mild/Mod Pain Or Temp >/= 101 Aspirin 81 mg 09/20/24 09:00 09/20/24 08:13 Aspirin 81 Mg Ec Tablet PO 81 mg DAILY DAGOBERTO Administration Norepinephrine Bitartrate 4 mg in 250 mls @ 0 mls/hr 09/19/24 03:00 09/19/24 19:00 Levophed IV Infused .Q0M DAGOBERTO Titration Protocol Per Protocol Sodium Chloride 1,000 mls @ 75 mls/hr 09/19/24 04:15 09/20/24 08:14 Sodium Chloride 0.9% IV 75 mls/hr .[id number] DAGOBERTO Administration Heparin Sodium/Sodium Chloride 25,000 unit in 500 mls @ 0 mls/hr 09/19/24 10:45 09/20/24 10:48 Heparin Drip IV 9.13 unit/kg/hr CONT DAGOBERTO 13 mls/hr Administration Protocol Per Protocol Meropenem 1,000 mg 09/19/24 18:00 09/20/24 05:10 Meropenem 1,000 Mg Sdv IVP 1,000 mg Q12H DAGOBERTO Administration Pantoprazole Sodium 40 mg 09/19/24 08:23 09/20/24 08:13 Pantoprazole 40 Mg Sdv IVP 40 mg Q24H DAGOBERTO Administration PFSH Acute 2 PFSH: Medical History BPH (benign prostatic hyperplasia) Social History Smoking and tobacco/nicotine status: never used tobacco/nicotine Alcohol intake: current Alcohol intake frequency: few times a month Substance/Drug Use: never Vitals/I&O/Wt Last Vital Signs Temp 97.8 F 09/20/24 12:45 Pulse 78 09/20/24 12:45 Resp 25 H 09/20/24 12:45 BP 106/80 09/20/24 12:45 Pulse Ox 99 09/20/24 12:45 O2 Del Method Room Air 09/20/24 12:45 09/19/24 09/20/24 09/20/24 22:59 06:59 14:59 Intake Total 2255.667 / 2991.667 211.733 / 3203.400 1416.433 / 1416.433 Output Total 650 / 1175 475 / 1650 400 / 400 Balance 1605.667 / 1816.667 -263.267 / 7192.654 3174.433 / 1016.433 Weight last 48 hrs Weight 74.389 kg Weight 74.5 kg Weight 71.35 kg Weight 71.214 kg Physical Exam 2 Narrative: General: No acute distress, AO x3 HEENT: PERRLA, pupils bilaterally equal and reactive, pallors not present Chest: Normal vesicular breath sounds, no added sounds, equal good air entry bilaterally CVS: S1-S2 regular, no murmurs, no tachycardia, no gallops, no rubs Abdomen: Soft, nontender, no organomegaly, bowel sounds present Neuro: No focal deficits, no facial deformity, AO x3, power 5/5 in all limbs Extremities PICC line on right arm. Data 09/20/24 04:10 09/20/24 04:10 Micro: Microbiology 09/19/24 01:25 Blood Culture - Preliminary Blood Escherichia coli 09/19/24 01:20 Blood Culture - Preliminary Blood Escherichia coli 09/20/24 04:05 Blood Culture - Preliminary Blood SPECIMEN COLLECTED 09/20/24 04:10 Blood Culture - Preliminary Blood SPECIMEN COLLECTED 09/19/24 10:20 Gram Stain - Final Cerebrospinal Fluid Cryptococcal Antigen (CSF) - Final 09/19/24 10:20 Bacterial Antigens - Final Cerebrospinal Fluid 09/19/24 03:15 Bacterial Antigens - Final Urine Kidney Other data: Radiology Impressions Head CT 09/19/24 02:33 IMPRESSION: 1. Scattered ectopic venous gas densities again seen including punctate gas densities within the cavernous sinuses. 2. Otherwise, there are no acute intracranial findings. Abdomen Ultrasound 09/19/24 03:09 IMPRESSION: 1. There are no acute abdominal findings. 2. Mild gallbladder wall thickening without evidence for gallstones or pericholecystic fluid to suggest cholecystitis. Chest/Abdomen/Pelvis CT 09/19/24 03:10 IMPRESSION: 1. Background centrilobular emphysema. Hazy opacities portions lungs likely represents atelectasis. 2. Elongated fluid-filled paratracheal cystic mass seen on the right may represent a benign bronchogenic cyst. 3. Ectopic gas densities superimposes over the left brachiocephalic vein, right internal jugular vein, right internal thoracic vein in left pectoralis veins. The etiology is indeterminate. IMPRESSION: 1. Simple cyst in the upper pole left kidney measuring 2.6 cm. No further workup needed. 2. Simple cyst in the left hepatic lobe measuring up 1.7 cm. No further workup needed. 3. Diverticulosis of the sigmoid colon COMMENTS: Consistent with the [place] [employer]'s Incidental Findings Committee white paper (J Am Abisai [employer]iol 2018): Any incidental renal lesion less than 1 cm or classified as too small to characterize, or any incidental cystic renal lesion characterized as simple-appearing, is likely benign. No follow-up imaging is recommended for these lesions per consensus recommendations based on imaging criteria. ADDENDUM: 09/19/24 0552 CRITICAL RESULT: THIS REPORT CONTAINS FINDINGS THAT MAY BE CRITICAL TO PATIENT CARE. The findings were verbally communicated via telephone conference with Dr. Mary at 5:48 AM DE [employer] INSTALLER on 09/19/2024. The findings were acknowledged and understood. Lumbar Puncture Fluoroscopy 09/19/24 05:51 IMPRESSION: Uncomplicated lumbar puncture for CSF. Neck CT 09/19/24 06:35 IMPRESSION: 1. 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 2. Scattered ectopic venous gas densities as previously reported and now seen within small veins in the soft tissues of the neck and within the right cavernous sinus. Chest X-Ray 09/19/24 10:32 IMPRESSION: RIGHT PICC line in good position Laboratory Results WBC 22.80 10^3/uL (3.29-11.43) H 09/20/24 04:10 RBC 3.94 10^6/uL (3.85-5.65) 09/20/24 04:10 Hgb 12.10 g/dL (11.27-16.99) 09/20/24 04:10 Hct 36.0 % (37-53) L 09/20/24 04:10 MCV 91.4 fl (82-101) 09/20/24 04:10 MCH 30.7 pg (27-33) 09/20/24 04:10 MCHC 33.6 g/dL (30-55) 09/20/24 04:10 RDW 13.1 % (12.1-15.1) 09/20/24 04:10 Plt Count 71 10^3/cmm (157-399) L 09/20/24 04:10 MPV 12.4 fL (7.4-10.4) H 09/20/24 04:10 Neut % (Auto) 83.1 % 09/20/24 04:10 Lymph % (Auto) 5.3 % 09/20/24 04:10 Todd % (Auto) 3.3 % 09/20/24 04:10 Eos % (Auto) 0.0 % 09/20/24 04:10 Baso % (Auto) 0.4 % 09/20/24 04:10 Neut # (Auto) 18.95 10^3/uL (1.8-7.7) H 09/20/24 04:10 Lymph # (Auto) 1.2 10^3/uL (0.8-4.8) 09/20/24 04:10 Todd # (Auto) 0.8 10^3/uL (0.2-0.9) 09/20/24 04:10 Eos # (Auto) 0.0 10^3/uL (0.0-0.8) 09/20/24 04:10 Baso # (Auto) 0.1 10^3/uL (0.0-0.1) 09/20/24 04:10 Nucleated RBC % (auto) 0 % 09/20/24 04:10 Total Counted 100 (0-100) 09/19/24 01:20 Atypical Lymphs % 8.0 % (0-5) H 09/19/24 01:20 Absolute Neutrophils 6.3 10^3/cmm (1.4-6.5) 09/19/24 01:20 Segmented Neutrophils 62 % 09/19/24 01:20 Band Neutrophils 21.0 % 09/19/24 01:20 Absolute Lymphocytes 0.8 10^3/cmm (1.2-3.4) L 09/19/24 01:20 Lymphocytes (Manual) 2 % 09/19/24 01:20 Monocytes (Manual) 5.0 % 09/19/24 01:20 Absolute Monocytes 0.4 10^3/cmm (0.1-0.6) 09/19/24 01:20 Eosinophils (Manual) 0 % 09/19/24 01:20 Absolute Eosinophils 0.0 10^3/cmm (0.0-0.7) 09/19/24 01:20 Basophils (Manual) 0.0 % 09/19/24 01:20 Absolute Basophils 0.0 10^3/cmm (0.0-0.2) 09/19/24 01:20 Myelocytes 2.0 % 09/19/24 01:20 Nucleated RBCs # 0.0 /100WBC 09/20/24 04:10 Toxic Vacuolation 2+ H 09/19/24 01:20 Platelet Estimate Decreased (Normal) 09/19/24 01:20 ESR < 1 mm/hr (0-10) 09/19/24 07:08 PT 18.10 SECONDS (12.1-14.9) H 09/19/24 01:20 INR 1.45 (0.8-1.2) H 09/19/24 01:20 APTT 53.0 SECONDS (23.9-36.7) H 09/20/24 08:55 D-Dimer 19.93 ug/mLFEU (0-0.59) H 09/19/24 11:25 Sodium 139 mmol/L (136-145) 09/20/24 04:10 Potassium 4.4 mmol/L (3.5-5.1) 09/20/24 04:10 Chloride 110 mmol/L (98-107) H 09/20/24 04:10 Carbon Dioxide 19 mmol/L (22-29) L 09/20/24 04:10 Anion Gap 14.4 (5-19) 09/20/24 04:10 BUN 35 mg/dL (8-23) H 09/20/24 04:10 Creatinine 0.9 mg/dL (0.7-1.2) 09/20/24 04:10 GFR Calculation 84.4 mL/min (90-130) L 09/20/24 04:10 Glucose 179 mg/dL (65-115) H 09/20/24 04:10 Estimat Average Glucose 114 09/19/24 01:20 Hemoglobin A1c 5.6 % (4.0-6.0) 09/19/24 01:20 Calculated Osmolality 300 mOsm/kg (285-295) H 09/20/24 04:10 Lactic Acid 2.6 mmol/L (0.5-2.2) H 09/20/24 04:10 Lactic Acid (Sepsis) 2.1 mmol/L (0.5-2.2) 09/20/24 08:55 Calcium 7.7 mg/dL (8.5-10.5) L 09/20/24 04:10 Phosphorus 1.9 mg/dL (2.5-4.5) L 09/20/24 04:10 Magnesium 1.9 mg/dL (1.7-2.3) 09/20/24 04:10 Iron 9 ug/dL (59-158) L 09/19/24 07:08 TIBC 145 mcg/dl 09/19/24 07:08 % Saturation 6.2 % (20-50) L 09/19/24 07:08 Unsat Iron Binding 136 ug/dL (112-347) 09/19/24 07:08 Total Bilirubin 0.4 mg/dL (0.15-1.2) 09/20/24 04:10 GGT 59 U/L (8-61) 09/19/24 07:08 AST 71 U/L (0-40) H 09/20/24 04:10 ALT 91 U/L (0-41) H 09/20/24 04:10 Alkaline Phosphatase 65 U/L (40-130) 09/20/24 04:10 Ammonia 27 umol/L (16-60) 09/19/24 04:01 Lactate Dehydrogenase 301 U/L (135-225) H 09/19/24 07:08 Creatine Kinase 473 U/L (39-308) H* 09/19/24 07:08 Troponin T Baseline 179 ng/L (0-15) H* 09/19/24 01:20 Troponin T 120 Minute 189.8 ng/L (0-15) H 09/19/24 02:34 Delta Troponin T 10.8 ABS# (0-10) H* 09/19/24 02:34 Troponin T Hi Sens 6Hr 146.7 ng/L (0-15) H 09/19/24 07:08 Troponin T Hi Sens 6Hr Delta -32.3 ng/L (0-12) L 09/19/24 07:08 C-Reactive Protein 145.4 mg/L (0.0-4.9) H 09/19/24 07:08 Total Protein 4.9 g/dL (6.6-8.7) L 09/20/24 04:10 Albumin 2.9 g/dL (3.5-5.2) L 09/20/24 04:10 Globulin 2.0 g/dL (1.3-4.6) 09/20/24 04:10 Triglycerides 49 mg/dL (0-150) 09/19/24 07:08 Cholesterol 90 mg/dL (0-200) 09/19/24 07:08 LDL Cholesterol, Calc 18 mg/dL (50-129) L 09/19/24 07:08 HDL Cholesterol 62 mg/dL (60-100) 09/19/24 07:08 LDL/HDL Ratio 0.29 RATIO (0.00-3.22) 09/19/24 07:08 Cholesterol/HDL Ratio 1.45 mg/dL (1.0-5.00) 09/19/24 07:08 Lipase 28 U/L (13-60) 09/19/24 01:20 Vitamin B12 745 pg/mL (232-1245) 09/19/24 07:08 Folate 9.9 ng/mL (4.5-32.2) 09/20/24 04:10 Procalcitonin 41.50 ng/mL (0-0.5) H 09/20/24 04:10 TSH 1.64 uIU/mL (0.27-4.20) 09/19/24 01:20 Urine Color Dark yellow (Yellow) A 09/19/24 03:15 Urine Appearance Cloudy (CLEAR) A 09/19/24 03:15 Urine pH 5.5 (5-7) 09/19/24 03:15 Ur Specific [place] 1.023 (1.005-1.030) 09/19/24 03:15 Urine Protein 1+ (Negative) A 09/19/24 03:15 Urine Glucose (UA) Negative (Normal) 09/19/24 03:15 Urine Ketones Trace (Negative) 09/19/24 03:15 Urine Blood Negative (Negative) 09/19/24 03:15 Urine Nitrate Negative (Negative) 09/19/24 03:15 Urine Bilirubin 1+ (Negative) H 09/19/24 03:15 Urine Urobilinogen 1.0 mg/dL (Negative) 09/19/24 03:15 Ur Leukocyte Esterase Negative (Negative) 09/19/24 03:15 Urine RBC 0-2 /hpf (0-2) 09/19/24 03:15 Urine WBC 0-5 /hpf (0-5) 09/19/24 03:15 Ur Squamous Epith Cells 0-5 /hpf (0-5) 09/19/24 03:15 Amorphous Sediment 1+ /hpf 09/19/24 03:15 Urine Bacteria Trace /hpf (NONE) 09/19/24 03:15 Hyaline Casts 4.11 /lpf 09/19/24 03:15 Urine Mucus 2+ /hpf 09/19/24 03:15 CSF Appearance Clear (CLEAR) 09/19/24 10:20 CSF Color Colorless (COLORLESS) 09/19/24 10:20 CSF Specific [place] 1.006 09/19/24 10:20 CSF WBC 3 /uL (0-5) 09/19/24 10:20 CSF RBC 0 10^3/uL (0-0) 09/19/24 10:20 CSF Mononuclear # Auto 0.003 10^3/uL (50-90) L 09/19/24 10:20 CSF Mononuclear WBCs % 100 % (50-90) H 09/19/24 10:20 CSF Polynuclear WBCs # 0.000 10^3/uL (0-10) 09/19/24 10:20 CSF Polynuclear WBCs % 0 % (0-10) 09/19/24 10:20 CSF Diff Comment Yes 09/19/24 10:20 CSF Glucose 69 mg/dL (40-70) 09/19/24 10:20 CSF Total Protein 58 mg/dL (15-45) H 09/19/24 10:20 Nasal MRSA (PCR) Not detected (Negative) 09/19/24 19:35 Urine Opiates Screen Positive ng/mL (Negative) H 09/19/24 03:15 Ur Barbiturates Screen Negative ng/mL (Negative) 09/19/24 03:15 Ur Phencyclidine Scrn Negative ng/mL (Negative) 09/19/24 03:15 Ur Amphetamines Screen Negative ng/mL (Negative) 09/19/24 03:15 U Benzodiazepines Scrn Negative ng/mL (Negative) 09/19/24 03:15 Urine Cocaine Screen Negative ng/mL (Negative) 09/19/24 03:15 U Marijuana (THC) Screen Negative ng/mL (Negative) 09/19/24 03:15 Ethyl Alcohol < 10 mg/dL (0-10) 09/19/24 07:08 Coronavirus (PCR) Negative (Negative) 09/19/24 04:01 Hepatitis A IgM Ab Non-reactive (Nonreactive) 09/19/24 01:20 Hep Bs Antigen Non-reactive (Nonreactive) 09/19/24 01:20 Hep B Core IgM Ab Non-reactive (Nonreactive) 09/19/24 01:20 Hepatitis C Antibody Non-reactive (Nonreactive) 09/19/24 01:20 HIV 1&2 Ab & HIV 1 Ag Non-reactive (Non-Reactiv) 09/19/24 01:20 HIV 1&2 Antibody Non-reactive (Non-Reactiv) 09/19/24 01:20 Influenza A (PCR) Negative (Negative) 09/19/24 04:01 Influenza Type B (PCR) Negative (Negative) 09/19/24 04:01 RSV (PCR) Negative (Negative) 09/19/24 04:01 A&P Assessment and plan (1) Septic shock: Septic shock as a result of gram-negative infection. Blood cultures positive for E. coli from 09/19/2024. Pending sensitivity testing. Source of bacteremia not entirely clear. CT of the chest without any acute consolidation. CT of the abdomen with benign liver cysts. Incidentally noted fluid-filled paratracheal cystic mass thought to be a benign bronchogenic cyst. No signs of diverticulitis. No hydronephrosis, simple cysts in left upper lobe of the kidney. Incidentally noted ectopic gas density over the left brachiocephalic vein, right internal jugular vein, right internal thoracic limb, unclear significance. 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 Continue to monitor blood culture for anaerobic growth as may have a polymicrobial infection, possible involvement of clostridial or Fusobacterium species. Urine analysis without signs of UTI. Patient is clinically improving. He is off pressors. Persisting leukocytosis more likely to be a result of high-dose steroid use. Lumbar puncture Gram stain and culture without growth CSF cell count 3, CSF glucose 69, CSF protein 58, overall picture does not appear to be consistent with bacterial meningitis. Plan: Continue meropenem for empiric treatment while pending sensitivities. Discontinue IV vancomycin and IV metronidazole. Meropenem will provide gram-negative coverage. Discontinue stress dose steroids, patient is now off pressors. No clinical concern for bacterial meningitis at this time. (2) NSTEMI (non-ST elevated myocardial infarction): NSTEMI, likely type II VT from sepsis. Echocardiogram showing hypokinesia EF 40%. Management per cardiology and primary team. Currently on heparin drip, antiplatelets and statins. (3) Transaminitis: Likely shock liver. Negative hepatitis A IgM, hepatitis B surface antigen, core antibody and negative hep C screen. CT abdomen and pelvis without any Guirgius liver or biliary abnormalities. Normal alkaline phosphatase and T. bili. AST ALT are trending down. (4) Acute metabolic encephalopathy: Now resolved, likely as a result of sepsis. Plan Incidentally noted venous gas on CT scan. Unclear significance. No signs of thrombophlebitis or DVT. Incidentally noted on the right innominate vein is echogenic material which appears to be mobile. There is no occlusive thrombus. Right inguinal jugular and subclavian veins are normal. Head CT with scattered ectopic venous gas densities in the cavernous sinuses. no focal deficits for stroke. Potentially concerning for polymicrobial infection perhaps additional Clostridium perfringens or Fusobacterium. Will await finalization of anaerobic cultures. In the interim meropenem to provide adequate anaerobic coverage. Patient is clinically improving. Coding Level of Care Code Acute Code for Chg Fwd High MDM includes number and complexity of problems actively addressed during encounter, amount and/or complexity of data reviewed/ordered and described risk of complication, morbidity or mortality of management as documented Diagnoses Septic shock A41.9; R65.21 NSTEMI (non-ST elevated myocardial infarction) I21.4 Transaminitis R74.01 Acute metabolic encephalopathy G93.41
--- NOTE | 2024-09-20 14:19 | P.PN_ITS ---
Subjective 2 Subjective: No acute vents overnight. Has been hemodynamically stable and afebrile. Levophed discontinued yesterday evening. More awake and alert. Monitor pressures have maintained over 65. Vitals/I&O/Wt Last Vital Signs Temp 97.8 F 09/20/24 12:45 Pulse 78 09/20/24 12:45 Resp 25 H 09/20/24 12:45 BP 106/80 09/20/24 12:45 Pulse Ox 99 09/20/24 12:45 O2 Del Method Room Air 09/20/24 12:45 09/19/24 09/20/24 09/20/24 22:59 06:59 14:59 Intake Total 2255.667 / 2991.667 211.733 / 3203.400 1416.433 / 1416.433 Output Total 650 / 1175 475 / 1650 400 / 400 Balance 1605.667 / 1816.667 -263.267 / 8066.736 8306.433 / 1016.433 Weight last 48 hrs Weight 74.389 kg Weight 74.5 kg Weight 71.35 kg Weight 71.214 kg Physical Exam 2 Narrative: General: No acute distress, AO x3, more awake and alert HEENT: PERRLA, pupils bilaterally equal and reactive Chest: Normal vesicular breath sounds, no added sounds, equal good air entry bilaterally CVS: S1-S2 regular, no murmurs, no tachycardia, no gallops, no rubs Abdomen: Soft, nontender, no organomegaly, bowel sounds present Neuro: No focal deficits, no facial deformity, AO x3, power 5/5 in all limbs Data 09/21/24 11:23 09/21/24 11:23 Micro: Microbiology 09/19/24 01:25 Blood Culture - Preliminary Blood Escherichia coli 09/19/24 01:20 Blood Culture - Preliminary Blood Escherichia coli 09/20/24 04:05 Blood Culture - Preliminary Blood SPECIMEN COLLECTED 09/20/24 04:10 Blood Culture - Preliminary Blood SPECIMEN COLLECTED 09/19/24 10:20 Gram Stain - Final Cerebrospinal Fluid Cryptococcal Antigen (CSF) - Final 09/19/24 10:20 Bacterial Antigens - Final Cerebrospinal Fluid 09/19/24 03:15 Bacterial Antigens - Final Urine Kidney A&P Assessment and plan (1) Septic shock: Keep mean artery pressure over 65. Wean Levophed accordingly. Patient dehydrated. SIRS: Tachycardic, Febrile, Leukocytosis Source: Unknown End organ damage: Acute infectious encephalopathy, JELENA, transaminitis Lactic acid elevated Patient did receive full 30 mL/kg BW. Continue with normal saline at 75 cc/h. Monitor blood pressures. Keep mean artery pressure 65 mmHg. Follow-up blood culture, urine culture, MRSA swab, procalcitonin, urine Legionella, bacterial antigen. UA negative for any concerns for UTI. CT abdomen pelvis negative for intra-abdominal pathology, collection, cholangitis. Patient is on room air. Low concern for pneumonia. Complaining of headache but does not have any photophobia. Mild nausea. Plan to undergo lumbar puncture later in the day. Will follow-up CSF studies. Will order a [employer] meningitis panel. For now continue with antibiotics as per meningitis dosage with meropenem and vancomycin. Patient does have ectopic gaseous shadows and venous system including brachiocephalic, IJ, pectoralis, going up to cavernous system. Discussed in detail with neurology and radiology on-call. Concerns for air embolism. Patient remains on room air though. Though less likelihood but consideration of Lemierre's syndrome. Patient denies any dental work, sores in the mouth, sore throat, dental pain. Check ESR, CRP, bilateral upper limb venous duplex, carotid artery arterial duplex. Will hold off on CT with contrast given JELENA. There is a concern for bronchogenic cyst though does not seem infected on CT. (2) NSTEMI (non-ST elevated myocardial infarction): Denies chest pain. Troponin cycle elevated on admission. Delta in 2 hours positive. Non-ST elevation [place] versus demand ischemia. Echocardiogram concerning for new low EF of 45% with grade 1 diastolic dysfunction, thickened aortic and mitral valve with PASP of 35 mmHg. Aspirin 81 mg daily, hold off on statin given transaminitis. Will start on beta-blockers once hemodynamically stable and off Levophed. Continue with heparin drip. Plan for possible cardiac stress test versus angiogram once patient is more hemodynamically stable. Will consult cardiology. (3) Congestive heart failure: Currently dehydrated. Continue the IV fluids while monitoring for fluid overload. Will start on guideline directed medical therapy once patient is more hemodynamically stable. Qualifiers: Heart failure chronicity: acute Heart failure type: systolic Qualified Code(s): I50.21 - Acute systolic (congestive) heart failure (4) Acute kidney injury: Most likely in setting of dehydration and septic shock. Medical reconciliation done for nephrotoxic drugs. Monitor urine output. Patient is denying Graham catheter. Normal saline at 75 cc/h. Monitor BMP daily for now. (5) Transaminitis: Possibly in setting of septic shock. Check urine drug screen, alcohol level. HIV, hepatitis negative. Monitor daily. (6) Acute encephalopathy: (7) Thrombocytopenia: Continue to monitor. No active signs of bleeding. (8) Rhabdomyolysis: IV fluid as above. Daily CPK. Plan Full code Cardiac diet Heparin drip be sufficient for DVT prophylaxis Protonix for PUD prophylaxis Will request documents from patient's outpatient physician in [place]. Plan for the day: Continue with meropenem. Appreciate CSF results. No concerns for meningitis for now. Follow-up CSF culture and bio fire results. MRSA swab negative. For now we will discontinue vancomycin, Flagyl. Continue with IV meropenem. Changed dose for creatinine clearance. E. coli bacteremia seen on blood cultures from admission. Repeat blood culture sent today. Follow-up results and sensitivities. Patient would most likely need at least 2 weeks of antibiotics after clearance of blood cultures. Patient is awake and alert. Eating by mouth. Discontinue IV fluids. Goal blood pressure less than 140/90 mmHg with mean over 65. No concerns for fluid overload for now. Appreciate cardiology recommendations. Continue with heparin drip for 24 more hours. No active chest pain. Continue baby aspirin. Holding off on statin given recent transaminitis. Plan for further ACS workup depending on clinical picture going forward. Attestations 2 Medical Necessity Statement*: Requires further hospitalization for management of severe sepsis with E. coli bacteremia, resolving JELENA and transaminitis, non-ST elevation [place] with further ACS workup and safe discharge planning is sought. Diagnoses Septic shock A41.9; R65.21 NSTEMI (non-ST elevated myocardial infarction) I21.4 Acute systolic congestive heart failure I50.21 Heart failure chronicity: acute Heart failure type: systolic Acute kidney injury N17.9 Transaminitis R74.01 Acute encephalopathy G93.40 Thrombocytopenia D69.6 Rhabdomyolysis M62.82
--- NOTE | 2024-09-20 15:31 | PC.NURSE ---
Report called to [facility], Patient to transfer to room 101.
--- NOTE | 2024-09-20 16:13 | PC.NURSE ---
Received patient from ICU via wheelchair. Received report from PRESTON Meléndez. Assumed care of patient at this time. Patient denies pain or needs. No distress observed.
--- NOTE | 2024-09-20 16:13 | PC.NURSE ---
Patient transferred to [facility] Room 101 on room air via wheelchair, Heparin drip running per MAR, NS running per Dr Jasmine request in message to nurse. Patient resting in bed, oriented to room and call light use, Taylor JOHNSTON at bedside. Paper chart let with staff at [facility]. Patients , Tricia notified of transfer via telephone.
[2024-09-20 17:30] LABS: Partial Thromboplastin Time 44.1 SECONDS (23.9-36.7)
[2024-09-21] VITALS (18 sets, daily range): BP systolic 101–119; BP diastolic 67–75; PULSE 60–78; RESP 17–22; TEMP 36.5–36.9; O2SAT 92–97; BMI 23.5
[2024-09-21 01:01] LABS: Partial Thromboplastin Time 53.8 SECONDS (23.9-36.7)
[2024-09-21] MEDS: meropenem 1,000 mg SDV 1000 MG IVP ×3 (05:45→21:49)
--- NOTE | 2024-09-21 07:35 | PM.PN ---
Subjective Subjective: Patient is feeling better today. No chest pain. Vitals/I&O/Wt Last Vital Signs Temp 97.9 F 09/21/24 07:15 Pulse 73 09/21/24 07:15 Resp 17 09/21/24 07:15 BP 119/75 09/21/24 07:15 Pulse Ox 96 09/21/24 07:15 O2 Del Method Room Air 09/21/24 07:15 09/20/24 09/21/24 09/21/24 22:59 06:59 14:59 Intake Total 1467.00 / 2883.433 104 / 2987.433 Output Total 500 / 900 550 / 1450 Balance 967.00 / 1983.433 -446 / 1537.433 Weight last 48 hrs Weight 164 lb Weight 164 lb Weight 164 lb 3.91 oz Weight 157 lb 4.8 oz Physical Exam Narrative: GENERAL: Patient is alert, awake and oriented x3. HEART: Regular S1 and S2. No murmur, rub or gallop. LUNGS: Clear to auscultate bilaterally. CENTRAL NERVOUS SYSTEM: Grossly nonfocal. EXTREMITIES: Lower extremities with out edema bilaterally. Data 09/21/24 07:07 09/20/24 04:10 Micro: Microbiology 09/20/24 04:05 Blood Culture - Preliminary Blood NEGATIVE TO DATE 09/20/24 04:10 Blood Culture - Preliminary Blood NEGATIVE TO DATE 09/19/24 01:25 Blood Culture - Preliminary Blood Escherichia coli 09/19/24 01:20 Blood Culture - Preliminary Blood Escherichia coli 09/19/24 10:20 Gram Stain - Final Cerebrospinal Fluid CSF Culture - Preliminary Bacterial Antigens - Final Cryptococcal Antigen (CSF) - Final A&P Assessment and plan (1) NSTEMI (non-ST elevated myocardial infarction): (2) Congestive heart failure: Qualifiers: Heart failure type: systolic Heart failure chronicity: acute Qualified Code(s): I50.21 - Acute systolic (congestive) heart failure (3) Thrombocytopenia: (4) Hypotension: Qualifiers: Hypotension type: idiopathic hypotension Qualified Code(s): I95.0 - Idiopathic hypotension Plan Patient completing 48 hours of anticoagulation. He wants to go home. No chest pain. From cardiac standpoint, further workup can be done as outpatient. However has bacteremia. I informed patient, primary team will decide timing of discharge as his main issue was septic shock/infection. He showed understanding. Thank you for involving us with care of this patient. We will continue to follow. Please call with questions. Attestations Medical Necessity Statement*: Care expected to cross 2 midnights. Coding Level of Care Code Acute Code for [facility] Diagnoses NSTEMI (non-ST elevated myocardial infarction) I21.4 Acute systolic congestive heart failure I50.21 Heart failure type: systolic Heart failure chronicity: acute Thrombocytopenia D69.6 Idiopathic hypotension I95.0 Hypotension type: idiopathic hypotension
[2024-09-21 08:09] LABS: Platelet Count 59 10^3/cmm (157-399)
[2024-09-21 08:24] LABS: Partial Thromboplastin Time 45.3 SECONDS (23.9-36.7)
[2024-09-21 08:31] LABS: Magnesium 2.5 mg/dL (1.7-2.3); Vancomycin Trough < 4.0 ug/mL (10-15)
[2024-09-21] MEDS: pantoprazole 40 mg SDV IVP (08:51)
[2024-09-21] MEDS: aspirin 81 mg EC Tablet PO (08:51)
[2024-09-21 11:33] LABS: Basophils # 0.1 10^3/uL (0.0-0.1); Basophils % 0.5 %; Eosinophils # 0.1 10^3/uL (0.0-0.8); Eosinophils % 0.2 %; Lymphocytes # 0.9 10^3/uL (0.8-4.8); Lymphocytes % 4.2 %; Mean Corpuscular HGB Conc 33.9 g/dL (30-55); Mean Corpuscular Hemoglobin 30.6 pg (27-33); Mean Corpuscular Volume 90.2 fl (82-101); Mean Platelet Volume 12.5 fL (7.4-10.4); Monocytes # 0.6 10^3/uL (0.2-0.9); Monocytes % 2.6 %; Neutrophils # 19.98 10^3/uL (1.8-7.7); Neutrophils % 91.6 %; Nucleated Red Blood Cells % 0 %; Platelet Count 74 10^3/cmm (157-399); Red Blood Count 3.99 10^6/uL (3.85-5.65); Red Cell Distribution Width 13.1 % (12.1-15.1); White Blood Count 21.83 10^3/uL (3.29-11.43)
[2024-09-21 11:52] LABS: Alanine Aminotransferase 59 U/L (0-41); Albumin Level 2.9 g/dL (3.5-5.2); Alkaline Phosphatase 74 U/L (40-130); Blood Urea Nitrogen 24 mg/dL (8-23); Calcium 8.3 mg/dL (8.5-10.5); Carbon Dioxide 22 mmol/L (22-29); Chloride 109 mmol/L (98-107); Creatinine Clr Calc Pharmacy 94.4985; Globulin 2.3 g/dL (1.3-4.6); Glomerular Filtration Rate 112.8 mL/min (90-130); Glucose 223 mg/dL (65-115); Osmolality Calculated 299 mOsm/kg (285-295); Sodium 139 mmol/L (136-145); Total Bilirubin 0.4 mg/dL (0.15-1.2); Total Protein 5.2 g/dL (6.6-8.7)
[2024-09-21 11:53] LABS: Anion Gap 12.4 (5-19); Aspartate Amino Transferase 26 U/L (0-40); Potassium 4.4 mmol/L (3.5-5.1)
--- NOTE | 2024-09-21 13:22 | ECG_ITS ---
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
--- NOTE | 2024-09-21 13:39 | P.PN_ITS ---
Subjective 2 Subjective: Acute events overnight. Patient seen sitting up in bed in CSU. Denies any nausea, vomiting, headache. Has remained hemodynamically stable and afebrile on room air. Asking when he can he go home. Vitals/I&O/Wt Last Vital Signs Temp 97.7 F 09/21/24 11:06 Pulse 66 09/21/24 11:06 Resp 18 09/21/24 11:06 BP 101/70 09/21/24 11:06 Pulse Ox 96 09/21/24 11:06 O2 Del Method Room Air 09/21/24 11:06 09/20/24 09/21/24 09/21/24 22:59 06:59 14:59 Intake Total 1467.00 / 2883.433 104 / 2987.433 692.317 / 692.317 Output Total 500 / 900 550 / 1450 Balance 967.00 / 1983.433 -446 / 1537.433 692.317 / 692.317 Weight last 48 hrs Weight 74.389 kg Weight 74.389 kg Weight 74.5 kg Physical Exam 2 Narrative: General: No acute distress, AO x3, more awake and alert HEENT: PERRLA, pupils bilaterally equal and reactive Chest: Normal vesicular breath sounds, no added sounds, equal good air entry bilaterally CVS: S1-S2 regular, no murmurs, no tachycardia, no gallops, no rubs Abdomen: Soft, nontender, no organomegaly, bowel sounds present Neuro: No focal deficits, no facial deformity, AO x3, power 5/5 in all limbs Data 09/21/24 11:23 09/21/24 11:23 Micro: Microbiology 09/19/24 10:20 Gram Stain - Final Cerebrospinal Fluid CSF Culture - Preliminary Bacterial Antigens - Final Cryptococcal Antigen (CSF) - Final 09/20/24 04:05 Blood Culture - Preliminary Blood NEGATIVE TO DATE 09/20/24 04:10 Blood Culture - Preliminary Blood NEGATIVE TO DATE 09/19/24 01:25 Blood Culture - Preliminary Blood Escherichia coli 09/19/24 01:20 Blood Culture - Preliminary Blood Escherichia coli A&P Assessment and plan (1) Septic shock: Keep mean artery pressure over 65. Wean Levophed accordingly. Patient dehydrated. SIRS: Tachycardic, Febrile, Leukocytosis Source: Unknown End organ damage: Acute infectious encephalopathy, JELENA, transaminitis Lactic acid elevated Patient did receive full 30 mL/kg BW. Continue with normal saline at 75 cc/h. Monitor blood pressures. Keep mean artery pressure 65 mmHg. Follow-up blood culture, urine culture, MRSA swab, procalcitonin, urine Legionella, bacterial antigen. UA negative for any concerns for UTI. CT abdomen pelvis negative for intra-abdominal pathology, collection, cholangitis. Patient is on room air. Low concern for pneumonia. Complaining of headache but does not have any photophobia. Mild nausea. Plan to undergo lumbar puncture later in the day. Will follow-up CSF studies. Will order a [employer] meningitis panel. For now continue with antibiotics as per meningitis dosage with meropenem and vancomycin. Patient does have ectopic gaseous shadows and venous system including brachiocephalic, IJ, pectoralis, going up to cavernous system. Discussed in detail with neurology and radiology on-call. Concerns for air embolism. Patient remains on room air though. Though less likelihood but consideration of Lemierre's syndrome. Patient denies any dental work, sores in the mouth, sore throat, dental pain. Check ESR, CRP, bilateral upper limb venous duplex, carotid artery arterial duplex. Will hold off on CT with contrast given JELENA. There is a concern for bronchogenic cyst though does not seem infected on CT. (2) NSTEMI (non-ST elevated myocardial infarction): Denies chest pain. Troponin cycle elevated on admission. Delta in 2 hours positive. Non-ST elevation [place] versus demand ischemia. Echocardiogram concerning for new low EF of 45% with grade 1 diastolic dysfunction, thickened aortic and mitral valve with PASP of 35 mmHg. Aspirin 81 mg daily, hold off on statin given transaminitis. Will start on beta-blockers once hemodynamically stable and off Levophed. Continue with heparin drip. Plan for possible cardiac stress test versus angiogram once patient is more hemodynamically stable. Will consult cardiology. (3) Congestive heart failure: Currently dehydrated. Continue the IV fluids while monitoring for fluid overload. Will start on guideline directed medical therapy once patient is more hemodynamically stable. Qualifiers: Heart failure type: systolic Heart failure chronicity: acute Qualified Code(s): I50.21 - Acute systolic (congestive) heart failure (4) Acute kidney injury: Most likely in setting of dehydration and septic shock. Medical reconciliation done for nephrotoxic drugs. Monitor urine output. Patient is denying Graham catheter. Normal saline at 75 cc/h. Monitor BMP daily for now. (5) Transaminitis: Possibly in setting of septic shock. Check urine drug screen, alcohol level. HIV, hepatitis negative. Monitor daily. (6) Acute encephalopathy: (7) Thrombocytopenia: Continue to monitor. No active signs of bleeding. (8) Rhabdomyolysis: IV fluid as above. Daily CPK. Plan Full code Cardiac diet Heparin drip be sufficient for DVT prophylaxis Protonix for PUD prophylaxis Will request documents from patient's outpatient physician in [place]. Plan for the day: If blood cultures so far negative. Admission blood cultures 4 out of 4 bottles positive for E. coli. Awaiting sensitivities. Continue with IV meropenem. Changed to every 8 hourly as per creatinine clearance. De-escalate as per culture sensitivities. Blood pressure stable. Goal blood pressure less than 140/90 manage with mean over 65. Baseline heart rate around 60-70. Hold off on adding beta-magno for now. No active chest pain. Continue baby aspirin. Stop heparin drip. Switch to heparin 5000 every 12 hourly for DVT prophylaxis. N.p.o. after midnight. Lexiscan stress test in AM. Patient is agreeable. Appreciate cardiology and ID recommendations. Attestations 2 Medical Necessity Statement*: Requires further hospitalization for management of E. coli bacteremia, sepsis, non-ST ovation [place] as outpatient antibiotics and further ACS workup is done. Diagnoses Septic shock A41.9; R65.21 NSTEMI (non-ST elevated myocardial infarction) I21.4 Acute systolic congestive heart failure I50.21 Heart failure type: systolic Heart failure chronicity: acute Acute kidney injury N17.9 Transaminitis R74.01 Acute encephalopathy G93.40 Thrombocytopenia D69.6 Rhabdomyolysis M62.82
[2024-09-21] MEDS: heparin 5,000 unit/mL INJ 1 mL 5000 UNIT SUBCUT (14:29)
[2024-09-21] MEDS: acetaminophen 325 mg Tablet 650 MG PO (20:10)
[2024-09-22] VITALS (7 sets, daily range): BP systolic 116–127; BP diastolic 67–87; PULSE 63–91; RESP 19–23; TEMP 36.4–36.7; O2SAT 95–97
[2024-09-22] MEDS: heparin 5,000 unit/mL INJ 1 mL 5000 UNIT SUBCUT (01:37)
[2024-09-22 04:14] LABS: Basophils # 0.1 10^3/uL (0.0-0.1); Basophils % 0.4 %; Eosinophils % 0.1 %; Hematocrit 34.6 % (37-53); Lymphocytes # 1.5 10^3/uL (0.8-4.8); Lymphocytes % 7.6 %; Mean Corpuscular HGB Conc 32.9 g/dL (30-55); Mean Corpuscular Hemoglobin 30.2 pg (27-33); Mean Corpuscular Volume 91.8 fl (82-101); Mean Platelet Volume 12.7 fL (7.4-10.4); Monocytes # 0.7 10^3/uL (0.2-0.9); Monocytes % 3.5 %; Neutrophils # 16.81 10^3/uL (1.8-7.7); Neutrophils % 87.1 %; Nucleated Red Blood Cells % 0 %; Platelet Count 73 10^3/cmm (157-399); Red Blood Count 3.77 10^6/uL (3.85-5.65); Red Cell Distribution Width 13.1 % (12.1-15.1); White Blood Count 19.29 10^3/uL (3.29-11.43)
[2024-09-22 04:40] LABS: Alanine Aminotransferase 49 U/L (0-41); Albumin Level 2.9 g/dL (3.5-5.2); Alkaline Phosphatase 93 U/L (40-130); Anion Gap 10.9 (5-19); Aspartate Amino Transferase 19 U/L (0-40); Blood Urea Nitrogen 28 mg/dL (8-23); Calcium 8.2 mg/dL (8.5-10.5); Carbon Dioxide 25 mmol/L (22-29); Chloride 110 mmol/L (98-107); Creatinine Clr Calc Pharmacy 94.4985; Globulin 1.8 g/dL (1.3-4.6); Glomerular Filtration Rate 96.7 mL/min (90-130); Glucose 127 mg/dL (65-115); Osmolality Calculated 301 mOsm/kg (285-295); Potassium 3.9 mmol/L (3.5-5.1); Sodium 142 mmol/L (136-145); Total Bilirubin 0.3 mg/dL (0.15-1.2); Total Protein 4.7 g/dL (6.6-8.7)
[2024-09-22] MEDS: meropenem 1,000 mg SDV 1000 MG IVP (05:03)
[2024-09-22] MEDS: acetaminophen 325 mg Tablet 650 MG PO (06:16)
[2024-09-22] MEDS: regadenoson 0.4 Mg/5 ml Syringe IVP (06:50)
[2024-09-22] MEDS: aspirin 81 mg EC Tablet PO (08:50)
[2024-09-22] MEDS: pantoprazole 40 mg SDV IVP (08:50)
--- NOTE | 2024-09-22 10:38 | CT_ITS ---
WS: [id number] CT NECK WITH CONTRAST HISTORY: Persistent leukocytosis. TECHNIQUE: Contiguous 2 mm axial images are performed through the neck with intravenous contrast. Sag ittal and coronal reformats are also submitted. All CT scans at [facility] use at least one o f these dose optimization techniques: automated exposure control; mA and/or kV adjustment per patient size (includes targeted exams where dose is matched to clinical indication); or iterative reconstruc tion. CONTRAST: CONTRAST: Omnipaque 350; 100 mL IV. DLP: 242.04 mGy.cm COMPARISON: Noncontrast CT 09/19/2024 Nasopharynx, oropharynx, hypopharynx and larynx are unremarkable. No soft tissue masses or abnormal e nhancement. Torus tubarius and fossa of Rosenmuller and parapharyngeal fat are normal. No significant lymphadenopathy is identified. Small nodules in the thyroid. Largest nodule lower pole LEFT gland measures 9 mm. No osseous abnormalities. Visualized portions of the skull base demonstrate no abnormalities. Orbits and globes are within norm al limits. No soft tissue masses. Central filling defect in the LEFT jugular vein highly suspicious for nonocclusive thrombus. Visualized paranasal sinuses and mastoid air cells are normal. New since 09/19/2024 are at least small bilateral layering pleural effusions noted in the upper lung draper. On the localizer imaging there is hazy attenuation in the upper lung draper which is probably related to edema and fluid overload. Reidentified is the nonenhancing cystic mass in the RIGHT paratracheal region which was previously de scribed. CT/CT neck w con* [id number] IMPRESSION: 1. New at least small bilateral layering pleural effusions are noted. 2. New hazy attenuation in the upper lung draper. Consider pulmonary edema and mild fluid overload. 3. Nonobstructive filling defect in the LEFT jugular vein. Suspicious for jugu lar vein thrombosis. 4. No cervical chain lymphadenopathy.
--- NOTE | 2024-09-22 11:06 | P.PN_ITS ---
<Statement entered by Teto Wahl M.D - 09/22/24 21:02> Patient was evaluated and cared for in conjunction with an advanced practice practitioner. I personally reviewed the chart and all pertinent data including imaging, telemetry, and laboratory results. I discussed the patient in detail with the advanced practice practitioner. Please see their note for complete progress note, results and agreed upon plan of care for the patient. Subjective 2 Subjective: Patient is doing well this morning. Vital signs are stable. Denies any chest pain. He had a stress test this morning. Awaiting results. Medications: Reviewed: Yes Vitals/I&O/Wt Last Vital Signs Temp 97.5 F L 09/22/24 09:00 Pulse 80 09/22/24 09:00 Resp 20 H 09/22/24 09:00 BP 120/67 09/22/24 09:00 Pulse Ox 95 09/22/24 09:00 O2 Del Method Room Air 09/22/24 09:00 09/21/24 09/22/24 09/22/24 22:59 06:59 14:59 Intake Total 480 / 1532.317 240 / 240 Balance 480 / 1132.317 240 / 240 Weight last 48 hrs Weight 173 lb Weight 164 lb Weight 164 lb Weight 164 lb Physical Exam 2 Narrative: General: No apparent distress, healthy appearing, well nourished HENMT: normoceophalic Muskuloskeletal: Full ROM Lymphatic: no lymphedema noted Respiratory: Normal respiratory effort, clear to auscultation bilaterally throughout all lung draper, no use of accessory muscles Cardio: No JVD, regular rate, regular rhythm, S1 S2 normal, no murmurs GI: Normal to inspection, nondistended Extremities: Full ROM, normal, normal capillary refill, no cyanosis or edema Neuro: Alert and oriented x4, no focal motor deficits Psych: Affect normal, denies suicidal ideation, mental status grossly normal Skin: No rashes or lesions noted, no wounds Data 09/22/24 02:54 09/22/24 02:54 Micro: Microbiology 09/19/24 01:25 Blood Culture - Final Blood Escherichia coli 09/19/24 01:20 Blood Culture - Final Blood Escherichia coli 09/19/24 10:20 Gram Stain - Final Cerebrospinal Fluid CSF Culture - Preliminary Bacterial Antigens - Final Cryptococcal Antigen (CSF) - Final 09/20/24 04:05 Blood Culture - Preliminary Blood NEGATIVE TO DATE 09/20/24 04:10 Blood Culture - Preliminary Blood NEGATIVE TO DATE Other data: Stress test IMPRESSIONS 1. Normal myocardial perfusion imaging with no evidence of ischemia 2. LV systolic function is normal A&P Assessment and plan (1) NSTEMI (non-ST elevated myocardial infarction): (2) Congestive heart failure: Qualifiers: Heart failure chronicity: acute Heart failure type: systolic Qualified Code(s): I50.21 - Acute systolic (congestive) heart failure (3) Thrombocytopenia: (4) Hypotension: Qualifiers: Hypotension type: idiopathic hypotension Qualified Code(s): I95.0 - Idiopathic hypotension Plan At this time patient is sitting comfortably with no acute events overnight. States he has never had any heart issues such as chest pain. He has gotten a stress test this morning. Stress test showed no evidence of ischemia with EF of 61%. Patient may f/u with us on an outpatient basis, but at this time no further workup necessary. Attestations 2 Medical Necessity Statement*: Deferred to primary. Coding Level of Care Code Acute Code for [facility] Diagnoses NSTEMI (non-ST elevated myocardial infarction) I21.4 Acute systolic congestive heart failure I50.21 Heart failure chronicity: acute Heart failure type: systolic Thrombocytopenia D69.6 Idiopathic hypotension I95.0 Hypotension type: idiopathic hypotension
[2024-09-22] MEDS: iohexol 350 mg/mL 500 mL Btl (per mL) IV (11:09)
--- NOTE | 2024-09-22 11:32 | P.DS_ITS ---
Discharge Providers Date of Admission: 09/19/24 07:41 Date of Discharge: September 22, 2024 Attending Provider at Admission: Hollis Naidu MD Attending Provider at Discharge: Fritz Knowles MD Consults: Cardiology: Dr. Wahl ID: Dr. Hadley Diagnoses at Discharge Discharge Diagnosis (1) NSTEMI (non-ST elevated myocardial infarction): Status: Acute (2) Congestive heart failure: Status: Acute Qualifiers: Heart failure chronicity: acute Heart failure type: systolic Qualified Code(s): I50.21 - Acute systolic (congestive) heart failure (3) Thrombocytopenia: Status: Acute (4) Hypotension: Status: Acute Qualifiers: Hypotension type: idiopathic hypotension Qualified Code(s): I95.0 - Idiopathic hypotension (5) Jugular vein thrombosis, left: Status: Acute (6) Renal failure: Status: Acute (7) Acute kidney injury: Status: Acute (8) Septic shock: Status: Acute (9) Sepsis: Status: Acute (10) Rhabdomyolysis: Status: Acute (11) Acute metabolic encephalopathy: Status: Acute (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 There was concern for meningitis for which patient underwent lumbar puncture which did not show signs of bacterial meningitis. Blood culture eventually ended up growing gram-negative rods which have been identified as E. coli. CT of the abdomen pelvis was performed for source evaluation. Grossly urinary and bowel systems are normal. Incidentally noted ectopic gas densities superimposing the left brachiocephalic vein, right internal jugular vein, right internal thoracic plane in the left pectoralis veins. Etiology was overall thought to be indeterminate. There is no history of placing any central lines. Patient does have a right-sided PICC, however it was placed after the above CAT scan was obtained. He was in septic shock, on pressors which have since been weaned off. Patient started treatment with IV meropenem, vancomycin, dexamethasone 10 mg IV every 6 hours due to concern for bacterial meningitis. Patient himself reported that he was feeling in his usual state of health until about 24 hours prior to admission. He developed chills and rigors which resolved spontaneously. He did not check his temperature at that time. Over the next day he was able to go about his usual ADLs until falling sick in the evening time. 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 They have recently moved here from [place]. 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 He wonders if eating with soiled hands may have led to his current symptoms. He denies any nausea vomiting diarrhea or chills. Does not recall eating anything unusual in the days leading up to admission. Denies any urinary complaints. Denies any prostate issues in the past. No history of known GI malignancy. Denies any recent trauma other than multiple nicks and cuts over his hand from working outdoors. Meningitis was ruled out with negative CSF. Patient responded well to the treatment and his renal and liver dysfunction resolved to normal. His other culture than E. coli from blood culture on admission remained negative. Given concerns for elevated D-dimer, severe sepsis, no other active source of infection other than a possible benign bronchogenic congenital cyst and ectopic gas in the venous system up to cavernous sinus there is a concern for Lemierre's syndrome for which she underwent CT head and neck with contrast which was concerning for jugular vein thrombosis. Facial CT was done which ruled out any odontogenic or sinus infections. Patient underwent Lexiscan stress test which was negative for any acute ischemia. Patient continued to improve and has remained afebrile, hemodynamically stable for last 2 to 3 days. Patient has shown resolution of his renal and liver dysfunction though he continued to have persistent leukocytosis. He did not have any episode of diarrhea during hospitalization. Given concerns for new jugular vein thrombosis, possible ectopic gas in the venous system, persistent leukocytosis with recent E. coli bacteremia he has been discharged on oral ciprofloxacin and Flagyl to finish a 14-day course. He is advised to follow-up with his PCP within next 1 week for repeat CBC and with ENT at the earliest for further evaluation of bronchogenic cyst to rule out source of infection. He has been discharged on Eliquis 10 mg twice daily for next 7 days followed by 5 mg twice daily for at least 6 months. He should have a repeat CT head and neck with his PCP as an outpatient after 6 months. Danger signs of worsening thrombophlebitis were discussed in detail with the patient. Physical Exam Narrative: General: No acute distress, AO x3, more awake and alert HEENT: PERRLA, pupils bilaterally equal and reactive Chest: Normal vesicular breath sounds, no added sounds, equal good air entry bilaterally CVS: S1-S2 regular, no murmurs, no tachycardia, no gallops, no rubs Abdomen: Soft, nontender, no organomegaly, bowel sounds present Neuro: No focal deficits, no facial deformity, AO x3, power 5/5 in all limbs Discharge Data Studies Completed and Pending Completed Studies During Hospitalization Category [place] [address] Stat Cat Scan 09/19/24 03:[address] head wo con* [id number] Stat Cat Scan 09/19/24 02:[address] neck wo con [id number] Stat Cat Scan 09/19/24 06:35 Completed CXRP [XR chest 1V portable 20203] Routine Exams 09/19/24 10:32 Completed FL guided lumbarpunc dx* [id number] Stat Exams 09/19/24 05:51 Completed Sestamibi Stress Test Request Routine Exams 09/21/24 13:22 Draft XR chest 1V portable [id number] Stat Exams 09/19/24 00:13 Completed NM shauna perf SPECT r/s* [id number] Routine Nuc Med 09/22/24 13:22 [place] [id number] Stat Ultrasound 09/19/24 06:33 Completed CV. echo complete* [id number] Stat Ultrasound 09/19/24 03:12 Completed US abdomen limited 44374 Stat Ultrasound 09/19/24 03:09 Completed US carotid duplex bilateral [CV carotid duplex BI* Ultrasound 09/19/24 12:42 Completed 12557] Routine US venous duplex lower extremity bilat [CV venous Ultrasound 09/19/24 12:42 [place] [id number]] Routine Pending at discharge Category Date Time Status CT neck w con* [id number] Routine Cat Scan 09/22/24 10:38 Taken Bacterial Antigen Stat Lab 09/19/24 10:20 Results Blood Culture AM LABS Lab 09/20/24 04:05 Results CSF Culture & Gram Stain Stat Lab 09/19/24 10:20 Results Cryptococcal Antigen (CSF) Stat Lab 09/19/24 10:20 Results Lymes Disease Antibodies CSF Stat Lab 09/19/24 10:20 Received Miscellaneous Test Routine Lab 09/19/24 10:20 [facility] Stat Lab 09/19/24 10:20 Received VDRL on CSF Stat Lab 09/19/24 10:20 Received Echocardiogram: CONCLUSIONS Mild diffuse hypokinesia of the left ventricle with an ejection fraction of 44%.mild left ventricular hypertrophy. Grade I/IV diastolic dysfunction (abnormal relaxation filling pattern), normal to mildly elevated filling pressures. Thickened aortic, mitral and tricuspid valves.Thickened tricuspid valve. Trace to mild tricuspid valve regurgitation. E PSP 35 mmHg. Trace mitral valve regurgitation. There is no pericardial effusion. There are no intracardiac masses. No similar previous studies are available for comparison Dr Kristy Luis MD [facility] (Electronically Signed) Final Date: 19 September 2024 Lexiscan stress test: PERFUSION FINDINGS SPECT images demonstrate homogeneous tracer distribution throughout the myocardium. FUNCTIONAL RESULTS (calculated via Gated SPECT) Stress Image LV EF (%): 61 Stress EDV (mL):113 TID: 1.05 Stress ESV (mL):44 FUNCTIONAL FINDINGS: There is normal left ventricular systolic function. IMPRESSIONS 1. Normal myocardial perfusion imaging with no evidence of ischemia 2. LV systolic function is normal Teto Wahl MD (Electronically Signed) Final Date: 22 September 2024 11:07 S Microbiology 09/19/24 01:25 Blood Blood Culture - Final Escherichia coli 09/19/24 01:20 Blood Blood Culture - Final Escherichia coli 09/19/24 10:20 Cerebrospinal Fluid Gram Stain - Final 09/19/24 10:20 Cerebrospinal Fluid CSF Culture - Preliminary 09/19/24 10:20 Cerebrospinal Fluid Bacterial Antigens - Final 09/19/24 10:20 Cerebrospinal Fluid Cryptococcal Antigen (CSF) - Final 09/20/24 04:05 Blood Blood Culture - Preliminary NEGATIVE TO DATE 09/20/24 04:10 Blood Blood Culture - Preliminary NEGATIVE TO DATE 09/19/24 10:20 Cerebrospinal Fluid Bacterial Antigens - Final 09/19/24 03:15 Urine Kidney Bacterial Antigens - Final Radiology Impressions Head CT 09/19/24 02:33 IMPRESSION: 1. Scattered ectopic venous gas densities again seen including punctate gas densities within the cavernous sinuses. 2. Otherwise, there are no acute intracranial findings. Abdomen Ultrasound 09/19/24 03:09 IMPRESSION: 1. There are no acute abdominal findings. 2. Mild gallbladder wall thickening without evidence for gallstones or pericholecystic fluid to suggest cholecystitis. Chest/Abdomen/Pelvis CT 09/19/24 03:10 IMPRESSION: 1. Background centrilobular emphysema. Hazy opacities portions lungs likely represents atelectasis. 2. Elongated fluid-filled paratracheal cystic mass seen on the right may represent a benign bronchogenic cyst. 3. Ectopic gas densities superimposes over the left brachiocephalic vein, right internal jugular vein, right internal thoracic vein in left pectoralis veins. The etiology is indeterminate. IMPRESSION: 1. Simple cyst in the upper pole left kidney measuring 2.6 cm. No further workup needed. 2. Simple cyst in the left hepatic lobe measuring up 1.7 cm. No further workup needed. 3. Diverticulosis of the sigmoid colon COMMENTS: Consistent with the [employer]'s Incidental Findings Committee white paper (J Am Abisai Radiol 2018): Any incidental renal lesion less than 1 cm or classified as too small to characterize, or any incidental cystic renal lesion characterized as simple-appearing, is likely benign. No follow-up imaging is recommended for these lesions per consensus recommendations based on imaging criteria. ADDENDUM: 09/19/24 0552 CRITICAL RESULT: THIS REPORT CONTAINS FINDINGS THAT MAY BE CRITICAL TO PATIENT CARE. The findings were verbally communicated via telephone conference with Dr. Mary at 5:48 AM HEALTH SAFETY AND ENVIRONMENT MANAGER on 09/19/2024. The findings were acknowledged and understood. Lumbar Puncture Fluoroscopy 09/19/24 05:51 IMPRESSION: Uncomplicated lumbar puncture for CSF. Chest X-Ray 09/19/24 10:32 IMPRESSION: RIGHT PICC line in good position Neck CT 09/22/24 10:38 IMPRESSION: 1. New at least small bilateral layering pleural effusions are noted. 2. New hazy attenuation in the upper lung draper. Consider pulmonary edema and mild fluid overload. 3. Nonobstructive filling defect in the LEFT jugular vein. Suspicious for jugular vein thrombosis. 4. No cervical chain lymphadenopathy. Face CT 09/22/24 11:55 IMPRESSION: 1. No significant dental caries or subperiosteal abscess is identified. 2. No osseous destruction or osteomyelitis involving the mandible or maxilla taking into consideration artifact from the patient's dental amalgam. 3. Reidentified is the filling defect in the LEFT jugular vein suspicious for nonocclusive jugular vein thrombosis. Laboratory Results WBC 19.29 10^3/uL (3.29-11.43) H 09/22/24 02:54 RBC 3.77 10^6/uL (3.85-5.65) L 09/22/24 02:54 Hgb 11.40 g/dL (11.27-16.99) 09/22/24 02:54 Hct 34.6 % (37-53) L 09/22/24 02:54 MCV 91.8 fl (82-101) 09/22/24 02:54 MCH 30.2 pg (27-33) 09/22/24 02:54 MCHC 32.9 g/dL (30-55) 09/22/24 02:54 RDW 13.1 % (12.1-15.1) 09/22/24 02:54 Plt Count 73 10^3/cmm (157-399) L 09/22/24 02:54 MPV 12.7 fL (7.4-10.4) H 09/22/24 02:54 Neut % (Auto) 87.1 % 09/22/24 02:54 Lymph % (Auto) 7.6 % 09/22/24 02:54 Grand % (Auto) 3.5 % 09/22/24 02:54 Eos % (Auto) 0.1 % 09/22/24 02:54 Baso % (Auto) 0.4 % 09/22/24 02:54 Neut # (Auto) 16.81 10^3/uL (1.8-7.7) H 09/22/24 02:54 Lymph # (Auto) 1.5 10^3/uL (0.8-4.8) 09/22/24 02:54 Grand # (Auto) 0.7 10^3/uL (0.2-0.9) 09/22/24 02:54 Eos # (Auto) 0.0 10^3/uL (0.0-0.8) 09/22/24 02:54 Baso # (Auto) 0.1 10^3/uL (0.0-0.1) 09/22/24 02:54 Nucleated RBC % (auto) 0 % 09/22/24 02:54 Total Counted 100 (0-100) 09/19/24 01:20 Atypical Lymphs % 8.0 % (0-5) H 09/19/24 01:20 Absolute Neutrophils 6.3 10^3/cmm (1.4-6.5) 09/19/24 01:20 Segmented Neutrophils 62 % 09/19/24 01:20 Band Neutrophils 21.0 % 09/19/24 01:20 Absolute Lymphocytes 0.8 10^3/cmm (1.2-3.4) L 09/19/24 01:20 Lymphocytes (Manual) 2 % 09/19/24 01:20 Monocytes (Manual) 5.0 % 09/19/24 01:20 Absolute Monocytes 0.4 10^3/cmm (0.1-0.6) 09/19/24 01:20 Eosinophils (Manual) 0 % 09/19/24 01:20 Absolute Eosinophils 0.0 10^3/cmm (0.0-0.7) 09/19/24 01:20 Basophils (Manual) 0.0 % 09/19/24 01:20 Absolute Basophils 0.0 10^3/cmm (0.0-0.2) 09/19/24 01:20 Myelocytes 2.0 % 09/19/24 01:20 Nucleated RBCs # 0.0 /100WBC 09/22/24 02:54 Toxic Vacuolation 2+ H 09/19/24 01:20 Platelet Estimate Decreased (Normal) 09/19/24 01:20 ESR < 1 mm/hr (0-10) 09/19/24 07:08 PT 18.10 SECONDS (12.1-14.9) H 09/19/24 01:20 INR 1.45 (0.8-1.2) H 09/19/24 01:20 APTT 45.3 SECONDS (23.9-36.7) H 09/21/24 07:07 D-Dimer 19.93 ug/mLFEU (0-0.59) H 09/19/24 11:25 Sodium 142 mmol/L (136-145) 09/22/24 02:54 Potassium 3.9 mmol/L (3.5-5.1) 09/22/24 02:54 Chloride 110 mmol/L (98-107) H 09/22/24 02:54 Carbon Dioxide 25 mmol/L (22-29) 09/22/24 02:54 Anion Gap 10.9 (5-19) 09/22/24 02:54 BUN 28 mg/dL (8-23) H 09/22/24 02:54 Creatinine 0.8 mg/dL (0.7-1.2) 09/22/24 02:54 GFR Calculation 96.7 mL/min (90-130) 09/22/24 02:54 Glucose 127 mg/dL (65-115) H 09/22/24 02:54 Estimat Average Glucose 114 09/19/24 01:20 Hemoglobin A1c 5.6 % (4.0-6.0) 09/19/24 01:20 Calculated Osmolality 301 mOsm/kg (285-295) H 09/22/24 02:54 Lactic Acid 2.6 mmol/L (0.5-2.2) H 09/20/24 04:10 Lactic Acid (Sepsis) 2.1 mmol/L (0.5-2.2) 09/20/24 08:55 Calcium 8.2 mg/dL (8.5-10.5) L 09/22/24 02:54 Phosphorus 1.9 mg/dL (2.5-4.5) L 09/20/24 04:10 Magnesium 2.0 mg/dL (1.7-2.3) 09/22/24 02:54 Iron 9 ug/dL (59-158) L 09/19/24 07:08 TIBC 145 mcg/dl 09/19/24 07:08 % Saturation 6.2 % (20-50) L 09/19/24 07:08 Unsat Iron Binding 136 ug/dL (112-347) 09/19/24 07:08 Total Bilirubin 0.3 mg/dL (0.15-1.2) 09/22/24 02:54 GGT 59 U/L (8-61) 09/19/24 07:08 AST 19 U/L (0-40) 09/22/24 02:54 ALT 49 U/L (0-41) H 09/22/24 02:54 Alkaline Phosphatase 93 U/L (40-130) 09/22/24 02:54 Ammonia 27 umol/L (16-60) 09/19/24 04:01 Lactate Dehydrogenase 301 U/L (135-225) H 09/19/24 07:08 Creatine Kinase 473 U/L (39-308) H* 09/19/24 07:08 Troponin T Baseline 179 ng/L (0-15) H* 09/19/24 01:20 Troponin T 120 Minute 189.8 ng/L (0-15) H 09/19/24 02:34 Delta Troponin T 10.8 ABS# (0-10) H* 09/19/24 02:34 Troponin T Hi Sens 6Hr 146.7 ng/L (0-15) H 09/19/24 07:08 Troponin T Hi Sens 6Hr Delta -32.3 ng/L (0-12) L 09/19/24 07:08 C-Reactive Protein 145.4 mg/L (0.0-4.9) H 09/19/24 07:08 Total Protein 4.7 g/dL (6.6-8.7) L 09/22/24 02:54 Albumin 2.9 g/dL (3.5-5.2) L 09/22/24 02:54 Globulin 1.8 g/dL (1.3-4.6) 09/22/24 02:54 Triglycerides 49 mg/dL (0-150) 09/19/24 07:08 Cholesterol 90 mg/dL (0-200) 09/19/24 07:08 LDL Cholesterol, Calc 18 mg/dL (50-129) L 09/19/24 07:08 HDL Cholesterol 62 mg/dL (60-100) 09/19/24 07:08 LDL/HDL Ratio 0.29 RATIO (0.00-3.22) 09/19/24 07:08 Cholesterol/HDL Ratio 1.45 mg/dL (1.0-5.00) 09/19/24 07:08 Lipase 28 U/L (13-60) 09/19/24 01:20 Vitamin B12 745 pg/mL (232-1245) 09/19/24 07:08 Folate 9.9 ng/mL (4.5-32.2) 09/20/24 04:10 Procalcitonin 41.50 ng/mL (0-0.5) H 09/20/24 04:10 TSH 1.64 uIU/mL (0.27-4.20) 09/19/24 01:20 Urine Color Dark yellow (Yellow) A 09/19/24 03:15 Urine Appearance Cloudy (CLEAR) A 09/19/24 03:15 Urine pH 5.5 (5-7) 09/19/24 03:15 Ur Specific [place] 1.023 (1.005-1.030) 09/19/24 03:15 Urine Protein 1+ (Negative) A 09/19/24 03:15 Urine Glucose (UA) Negative (Normal) 09/19/24 03:15 Urine Ketones Trace (Negative) 09/19/24 03:15 Urine Blood Negative (Negative) 09/19/24 03:15 Urine Nitrate Negative (Negative) 09/19/24 03:15 Urine Bilirubin 1+ (Negative) H 09/19/24 03:15 Urine Urobilinogen 1.0 mg/dL (Negative) 09/19/24 03:15 Ur Leukocyte Esterase Negative (Negative) 09/19/24 03:15 Urine RBC 0-2 /hpf (0-2) 09/19/24 03:15 Urine WBC 0-5 /hpf (0-5) 09/19/24 03:15 Ur Squamous Epith Cells 0-5 /hpf (0-5) 09/19/24 03:15 Amorphous Sediment 1+ /hpf 09/19/24 03:15 Urine Bacteria Trace /hpf (NONE) 09/19/24 03:15 Hyaline Casts 4.11 /lpf 09/19/24 03:15 Urine Mucus 2+ /hpf 09/19/24 03:15 CSF Appearance Clear (CLEAR) 09/19/24 10:20 CSF Color Colorless (COLORLESS) 09/19/24 10:20 CSF Specific [place] 1.006 09/19/24 10:20 CSF WBC 3 /uL (0-5) 09/19/24 10:20 CSF RBC 0 10^3/uL (0-0) 09/19/24 10:20 CSF Mononuclear # Auto 0.003 10^3/uL (50-90) L 09/19/24 10:20 CSF Mononuclear WBCs % 100 % (50-90) H 09/19/24 10:20 CSF Polynuclear WBCs # 0.000 10^3/uL (0-10) 09/19/24 10:20 CSF Polynuclear WBCs % 0 % (0-10) 09/19/24 10:20 CSF Diff Comment Yes 09/19/24 10:20 CSF Glucose 69 mg/dL (40-70) 09/19/24 10:20 CSF Total Protein 58 mg/dL (15-45) H 09/19/24 10:20 Nasal MRSA (PCR) Not detected (Negative) 09/19/24 19:35 Vancomycin Trough < 4.0 ug/mL (10-15) L 09/21/24 07:07 Urine Opiates Screen Positive ng/mL (Negative) H 09/19/24 03:15 Ur Barbiturates Screen Negative ng/mL (Negative) 09/19/24 03:15 Ur Phencyclidine Scrn Negative ng/mL (Negative) 09/19/24 03:15 Ur Amphetamines Screen Negative ng/mL (Negative) 09/19/24 03:15 U Benzodiazepines Scrn Negative ng/mL (Negative) 09/19/24 03:15 Urine Cocaine Screen Negative ng/mL (Negative) 09/19/24 03:15 U Marijuana (THC) Screen Negative ng/mL (Negative) 09/19/24 03:15 Ethyl Alcohol < 10 mg/dL (0-10) 09/19/24 07:08 Coronavirus (PCR) Negative (Negative) 09/19/24 04:01 Hepatitis A IgM Ab Non-reactive (Nonreactive) 09/19/24 01:20 Hep Bs Antigen Non-reactive (Nonreactive) 09/19/24 01:20 Hep B Core IgM Ab Non-reactive (Nonreactive) 09/19/24 01:20 Hepatitis C Antibody Non-reactive (Nonreactive) 09/19/24 01:20 HIV 1&2 Ab & HIV 1 Ag Non-reactive (Non-Reactiv) 09/19/24 01:20 HIV 1&2 Antibody Non-reactive (Non-Reactiv) 09/19/24 01:20 Influenza A (PCR) Negative (Negative) 09/19/24 04:01 Influenza Type B (PCR) Negative (Negative) 09/19/24 04:01 RSV (PCR) Negative (Negative) 09/19/24 04:01 Vitals Last Vital Signs Temp 97.5 F L 09/22/24 09:00 Pulse 80 09/22/24 09:00 Resp 20 H 09/22/24 09:00 BP 120/67 09/22/24 09:00 Pulse Ox 95 09/22/24 09:00 O2 Del Method Room Air 09/22/24 09:00 Discharge Plan Discharge Patient Disposition: Home Condition: Stable Prescriptions: New ciprofloxacin HCl 500 mg tablet 500 mg PO BID Qty: 26 0RF Eliquis DVT-PE Treat 30D Start 5 mg (74 tabs) tablets,dose pack See Rx Instructions .ROUTE .COMPLEX Qty: 74 0RF Rx Instructions: orally per package directions metronidazole 500 mg tablet 500 mg PO Q8H 14 Days Qty: 42 0RF Discharge Orders: Discharge Order (Routine); Ordered 09/22/24 Ordered By: Fritz Knowles Referrals: Raf Johnson MD [Physician] - 09/25/24 7:00 am ( Please arrive for check-in at 7:00a.m. Thank you. ) Laila Cha FNP [Referring] - 4-7 days (Clinic is closed for the . Please call to schedule an appointment on 09/25. Thank you! ) Discharge Diet: Regular Discharge Activity: Resume usual activity and Increase activity as tolerated Patient Instructions: Ciprofloxacin (By mouth) (Cipro), Metronidazole (By mouth) (Flagyl, Flagyl 375, Flagyl ER, Likmez), Apixaban (By mouth) (Eliquis), Heart Failure (DC), Hypotension (DC), Thrombocytopenia (DC), CHF Stoplight, Opioid Safety Activity Restrictions/Additional Instructions: Follow-up with a primary care provider within next 1 week for a repeat CBC. Follow-up with the ENT at the earliest for further evaluation of possibly infected bronchogenic congenital cyst Take antibiotic including ciprofloxacin 500 mg twice daily along with Flagyl 500 mg 3 times a day for next 2 weeks. You will be on blood thinner which is Eliquis. Take 10 mg twice daily for next 1 week followed by 5 mg twice daily at least for next 6 months. You should have a CT head and neck with contrast repeat in 6 months for follow- up of jugular vein thrombosis. Discharge Attestations Time Spent in Discharge Care*: greater than 30 min Specific Discharge Activities: educating patient, educating and/or supporting family/caregiver, discussing with pcp/other providers, discussing with caseworker protective services/social workers/dc planners, documenting/other paperwork and evaluating patient/reviewing data Status at Discharge: Cognitive status at discharge: cognitively intact , Behavioral status at discharge: cooperative , Functional status at discharge: independent ambulation , Overall status at discharge: patient is back to baseline Quality Metrics Clinical Quality Measures [ Venous Thromboembolism { Contraindication to Overlap Therapy: None; Overlap threrpy ordered; VTE Discharge Education: Education about anticoagulant therapy/Care Notes given, Education about treatment options/disease process, Medication side effects education, INR/lab monitoring education as applicable, Follow-up arranged, Other; Contraindication to Pharm VTE Prophylaxis: None; Pharmacological prophylaxis given;}] Coding Level of Care Code 69562 Total time (in minutes) for Discharge: 70 Diagnoses NSTEMI (non-ST elevated myocardial infarction) I21.4 Acute systolic congestive heart failure I50.21 Heart failure chronicity: acute Heart failure type: systolic Thrombocytopenia D69.6 Idiopathic hypotension I95.0 Hypotension type: idiopathic hypotension Jugular vein thrombosis, left I82.890 Renal failure N19 Acute kidney injury N17.9 Septic shock A41.9; R65.21 Sepsis A41.9 Rhabdomyolysis M62.82 Acute metabolic encephalopathy G93.41 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
[2024-09-22] MEDS: cefTRIAXone 1,000 mg SDV 1000 MG IVP (11:34)
--- NOTE | 2024-09-22 11:43 | PC.SOCIAL ---
IMM Updated Updated pt on IMM. No questions voiced. Provided pt a copy. Initialed, dated, & timed a copy & placed in chart.
--- NOTE | 2024-09-22 11:55 | CT_ITS ---
WS: [id number] CT FACIAL BONES HISTORY: possible infection TECHNIQUE: Images obtained from the supraorbital location through the mandible. Soft tissue and bone windows are reviewed. Coronal and sagittal reformats have also been submitted. DLP: 242.[address] scans at [facility] use at least one of these dose optimization techniques: automated e xposure control; mA and/or kV adjustment per patient size (includes targeted exams where dose is matc hed to clinical indication); or iterative reconstruction. COMPARISON: None available. There is artifact from patient's dental amalgam obscuring soft tissue and bone detail of the mandible and maxilla. No bone destruction is identified. No significant dental caries is identified. There ar e no enhancing masses or subperiosteal abscess associated with dental caries. No adenopathy within th e neck. Reidentified is a recently described filling defect in the LEFT jugular vein. Small mucous retention cyst in the RIGHT maxillary sinus. Orbits and globes are negative. CT/CT facial bones wo con* [id number] IMPRESSION: 1. No significant dental caries or subperiosteal abscess is identified. 2. No osseous destruction or osteomyelitis involving the mandible or maxilla t aking into consideration artifact from the patient's dental amalgam. 3. Reidentified is the filling defect in the LEFT jugular vein suspicious for nonocclusive jugular vein thrombosis.
--- NOTE | 2024-09-22 13:22 | NMCV_ITS ---
NM shauna perf SPECT r/s* [id number] Christopher Rain Age: 68 Gender: M : 1955 Exam Date: 09/22/2024 06:23 Ordering Phys: Fritz Knowles MD Technologist: ABBIE Vora Exam Location: [facility] Indications: CP STRESS TEST Please see separate stress test report in [facility] for full findings IMAGE PROTOCOL Rest/Stress 1 Lexiscan Day Radiopharmaceutical Dose (mCi) Administration Site Administered by Rest: Tc-99m 10.9 IV ABBIE Vora Sestamibi Stress:Tc-99m 32.5 IV ABBIE Gong Sestamibi Rest: 22-Sep-2024 60 Discovery 630 Stress: 22-Sep-2024 30 Discovery 630 0.4mg Lexiscan. Images obtained in supine and prone position. SPECT RESULTS Technical Quality: Good Raw Data Analysis: Normal Image Corrections: No attenuation or motion correction applied Summed Stress Score: 0 Summed Rest Score: 0 Summed Difference Score: 0 PERFUSION FINDINGS SPECT images demonstrate homogeneous tracer distribution throughout the myocardium. FUNCTIONAL RESULTS (calculated via Gated SPECT) Stress Image LV EF (%): 61 Stress EDV (mL):113 TID: 1.05 Stress ESV (mL):44 FUNCTIONAL FINDINGS: There is normal left ventricular systolic function. IMPRESSIONS 1. Normal myocardial perfusion imaging with no evidence of ischemia 2. LV systolic function is normal Teto Wahl MD (Electronically Signed) Final Date: 22 September 2024 11:07 S
[2024-09-23 16:25] LABS: Anti-Double Strand DNA AB 1 IU/mL; Jo-1 Antibody <1.0 NEG AI (<1.0 NEG); SS-B/LA IGG <1.0 NEG AI (<1.0 NEG); Scleroderma Ab(Scl-70) Ab <1.0 NEG AI (<1.0 NEG); Ss-A/Ro Igg <1.0 NEG AI (<1.0 NEG)
[2024-09-23 16:44] LABS: St. Louis Enceph.Virus IGG CSF <1:1; St. Louis Enceph.Virus IGM CSF <1:1
[2024-09-23 18:13] LABS: VDRL on CSF NON-REACTIVE
== END 2024-09-22 14:19 | disposition home or self-care (01) | DRG 871 ==
LOC: ER 09-19 05:53 → ICU 09-19 07:41 → CSU 09-20 16:06
PROVIDERS: Emergency Medicine; Student in an Organized Health Care Education/Training Program; Admitting Provider Family Medicine; Emergency Provider Family Medicine; Visit Provider Student in an Organized Health Care Education/Training Program
DX: A41.9 Sepsis, unspecified organism (principal); G93.41 Metabolic encephalopathy; I21.4 Non-ST elevation (NSTEMI) myocardial infarction; R65.21 Severe sepsis with septic shock; I50.23 Acute on chronic systolic (congestive) heart failure; N17.9 Acute kidney failure, unspecified; R17 Unspecified jaundice; M62.82 Rhabdomyolysis; Q33.0 Congenital cystic lung; I82.C12 Acute embolism and thrombosis of left internal jugular vein; I24.89 Other forms of acute ischemic heart disease; G89.29 Other chronic pain; M54.50 Low back pain, unspecified; N40.0 Benign prostatic hyperplasia without lower urinary tract symptoms; E86.0 Dehydration; D69.6 Thrombocytopenia, unspecified; B96.20 Unspecified Escherichia coli [E. coli] as the cause of diseases classified elsewhere; I95.0 Idiopathic hypotension; Z79.82 Long term (current) use of aspirin
CPT/HCPCS: 0241U; 36415; 36573; 36592; 62328; 70450; 70486; 70490; 70491; 71045; 71250; 74176; 76705; 78452; 80053; 80061; 80074; 80202; 80306; 80307; 80503; 81001; 82140; 82550; 82607; 82746; 82945; 82977; 83036; 83516; 83540; 83550; 83605; 83615; 83690; 83735; 84100; 84145; 84157; 84315; 84443; 84484; 85007; 85025; 85049; 85378; 85610; 85651; 85730; 86140; 86146; 86147; 86225; 86235; 86403; 86592; 86617; 86653; 87040; 87070; 87075; 87077; 87150; 87186; 87205; 87327; 87806; 89050; 93005; 93306; 93880; 93970; 94664; 96365; 96366; 96367; 96372; 96375; 96376; 99285; A9500; C1751; J0696; J1100; J1644; J2020; J2185; J2470; J2785; J3370; J3372; J3490; J7030; J7040

== ENCOUNTER 2024-11-11 13:41 | Outpatient (CLI) | payer MEDICARE, SELFPAY ==
--- NOTE | 2024-11-11 13:44 | CT_ITS ---
WS: [id number] CT NECK TECHNIQUE: Contrast-enhanced CT of the neck with coronal and sagittal reformatted images. CLINICAL INFORMATION: OTHER DISORDERS OF LUNG COMPARISON: 09/22/2024 DLP: 153.[address] scans at [facility] use at least one of these dose optimization techniques: automated exposure control; mA and/or kV adjustment per patient size (includes targeted exams where dose is matched to clinical indication); or iterative reconstruction. FINDINGS: Mild mucosal thickening in the ethmoid air cells. Polypoid mucosal thickening in the maxillary sinuses. Sphenoid sinuses are well aerated. Mastoid air cells are well aerated. Normal posterior nasopharynx. Dental artifact degrades some images at the tongue base. Normal parapharyngeal fat. Parotid glands are normal. Submandibular glands are normal. No evidence of supraglottic or glottic mass. Normal vallecula. Normal piriform sinuses. Normal subglottic airway. Fibrosis in the lung apices. Mild carotid bulb calcification. Partially visualized previously described nonenhancing paratracheal cystic mass which appears stable to smaller today although incompletely visualized. This is best appreciated on the coronal imaging. Small bilateral thyroid nodules largest on the LEFT measuring [address]/CT neck w con* [id number] IMPRESSION: 1. Partially visualized paratracheal cystic mass appears stable to slightly sm aller today previously described. 2. Multinodular thyroid is similar in appearance. 3. Upper lungs are well aerated today. 4. LEFT jugular vein thrombus is no longer visualized. 5. Polypoid mucosal thickening in the paranasal sinuses. 6. No other acute findings.
[2024-11-11] MEDS: iohexol 350 mg/mL 500 mL Btl (per mL) IV (14:08)
== END 2024-11-11 13:42 | disposition home or self-care (01) ==
PROVIDERS: PCP Nurse Practitioner Family; Visit Provider Specialist
DX: J98.4 Other disorders of lung (principal); R93.89 Abnormal findings on diagnostic imaging of other specified body structures; J84.10 Pulmonary fibrosis, unspecified; I65.29 Occlusion and stenosis of unspecified carotid artery; R91.8 Other nonspecific abnormal finding of lung field; E04.2 Nontoxic multinodular goiter
CPT/HCPCS: 70491